=== PATIENT | female | born 1940 | race Caucasian/White ===

== ENCOUNTER 2017-08-07 12:27 | Emergency (ER) | payer MEDICARE, OTHER ==
[~2017-08-07] VITALS: Ht 165.1 cm; Wt 51.3 kg
[~2017-08-07 12:27] MED LIST: Advil200 M1 PO; HYDR1TAB94 PO; POTCIT10 PO
[2017-08-07] MEDS ORDERED: ASPI325 PO (13:25)
[2017-08-07] MEDS ORDERED: Garlic1 EAC1 PO (13:26)
[2017-08-07] MEDS ORDERED: Ginger250 MG PO (13:26)
[2017-08-07 13:48] LABS: BASOPHILS ABSOLUTE AUTO 0.02 K/mm3 (0.00-0.23); BASOPHILS PERCENT AUTO 0 % (0-2); EOSINOPHILS PERCENT AUTO 0 % (0-6); Hematocrit 48.7 % (33.0-51.0); Hemoglobin 15.6 g/dL (11.5-16.0); IMMATURE GRAN ABSOLUTE AUTO 0.06 K/mm3 (0.00-0.10); IMMATURE GRAN PERCENT AUTO 1 % (0-1); LYMPHOCYTES ABSOLUTE AUTO 0.36 K/mm3 (0.84-5.20); LYMPHOCYTES PERCENT AUTO 3 % (21-46); MONOCYTES ABSOLUTE AUTO 0.59 K/mm3 (0.16-1.47); MONOCYTES PERCENT AUTO 4 % (4-13); Mean Corpuscular HGB 26.9 pg (26.0-34.0); Mean Corpuscular Volume 84 fL (80-100); Mean Platelet Volume 9.8 fL (9.1-12.4); NEUTROPHILS ABSOLUTE AUTO 12.25 K/mm3 (1.96-9.15); NEUTROPHILS PERCENT AUTO 92 % (41-73); Platelet Count 340 K/mm3 (150-400); RDW Coefficient Variation 13.8 % (11.7-14.2); RDW Standard Deviation 42.1 fL (35.1-46.3); Red Blood Cell Count 5.81 M/mm3 (3.80-5.20); White Blood Cell Count 13.28 K/mm3 (4.00-11.30)
[2017-08-07 13:55] LABS: Bun/Creatinine Ratio 13.2 (12.0-20.0); Calcium, Blood 9.4 mg/dL (8.5-10.1); Creatinine, Blood 1.44 mg/dL (0.40-1.00); Potassium, Blood 4.8 mmol/L (3.5-5.5)
[2017-08-07] MEDS ORDERED: Zofran Odt4 MG SL (15:52)
[2017-08-07] MEDS ORDERED: Percocet 5-3251 EACH PO (15:52)
[2017-08-07] MEDS ORDERED: Flomax0.4 MG PO (15:52)
== END 2017-08-07 16:57 | disposition home or self-care (01) ==
LOC: ER 12:27
PROVIDERS: Emergency Medicine
DX: N13.2 Hydronephrosis with renal and ureteral calculous obstruction (principal); Z79.899 Other long term (current) drug therapy; Z79.82 Long term (current) use of aspirin; Z87.442 Personal history of urinary calculi; Z87.891 Personal history of nicotine dependence
CPT/HCPCS: 36415; 74176; 80048; 81000; 83690; 85025; 96361; 96374; 96375; 99284; J1885; J2405; J3010; J7030; P9612

== ENCOUNTER 2017-08-10 12:24 | Emergency (ER) | payer MEDICARE, OTHER ==
[~2017-08-10] VITALS: Ht 170.2 cm; Wt 51.3 kg
[~2017-08-10 12:24] MED LIST changes: +ASPI325 PO; +Flomax0.4 MG PO; +Garlic1 EAC1 PO; +Ginger250 MG PO; +Percocet 5-3251 EACH PO; +Zofran Odt4 MG SL
[2017-08-10 14:37] LABS: BASOPHILS ABSOLUTE AUTO 0.02 K/mm3 (0.00-0.23); BASOPHILS PERCENT AUTO 0 % (0-2); EOSINOPHILS ABSOLUTE AUTO 0.02 K/mm3 (0.00-0.68); EOSINOPHILS PERCENT AUTO 0 % (0-6); Hematocrit 37.7 % (33.0-51.0); Hemoglobin 12.3 g/dL (11.5-16.0); IMMATURE GRAN ABSOLUTE AUTO 0.04 K/mm3 (0.00-0.10); IMMATURE GRAN PERCENT AUTO 0 % (0-1); LYMPHOCYTES ABSOLUTE AUTO 0.68 K/mm3 (0.84-5.20); LYMPHOCYTES PERCENT AUTO 6 % (21-46); MONOCYTES ABSOLUTE AUTO 1.17 K/mm3 (0.16-1.47); MONOCYTES PERCENT AUTO 11 % (4-13); Mean Corpuscular HGB 26.6 pg (26.0-34.0); Mean Corpuscular HGB Conc 32.6 g/dL (31.5-36.5); Mean Corpuscular Volume 82 fL (80-100); NEUTROPHILS ABSOLUTE AUTO 8.69 K/mm3 (1.96-9.15); NEUTROPHILS PERCENT AUTO 82 % (41-73); Platelet Count 232 K/mm3 (150-400); RDW Coefficient Variation 13.5 % (11.7-14.2); RDW Standard Deviation 40.3 fL (35.1-46.3); Red Blood Cell Count 4.62 M/mm3 (3.80-5.20); White Blood Cell Count 10.62 K/mm3 (4.00-11.30)
[2017-08-10 15:09] LABS: Albumin, Blood 2.8 g/dL (3.4-5.0); Albumin/Globulin Ratio 0.7 (0.8-1.8); Bilirubin, Total 0.5 mg/dL (0.1-1.0); Bun/Creatinine Ratio 9.1 (12.0-20.0); Calcium, Blood 8.2 mg/dL (8.5-10.1); Creatinine, Blood 7.83 mg/dL (0.40-1.00); Globulin, Blood 3.9 g/dL (2.2-4.0); Potassium, Blood 6.4 mmol/L (3.5-5.5); Total Protein, Blood 6.7 g/dL (6.4-8.2)
[2017-08-10 17:05] LABS: Calcium, Ionized (POC) 1.07 mmol/L (1.10-1.46); Chloride (POC) 96 mmol/L (98-108); Creatinine (POC) 8.3 mg/dL (0.6-1.0); Glucose (ISTAT POC) 140 mg/dL (70-99); Hemoglobin (POC) 11.9 g/dL (12.0-16.0); Potassium (POC) 5.1 mmol/L (3.5-5.5); Sodium (POC) 126 mmol/L (135-148); Total CO2 (POC) 18 mmol/L (21-32)
== END 2017-08-10 17:15 | disposition short-term general hospital (02) ==
LOC: ER 12:24
PROVIDERS: Emergency Medicine
DX: N13.2 Hydronephrosis with renal and ureteral calculous obstruction (principal); N17.9 Acute kidney failure, unspecified; E87.2 Acidosis; Z79.899 Other long term (current) drug therapy; Z87.442 Personal history of urinary calculi; Z87.891 Personal history of nicotine dependence
CPT/HCPCS: 36415; 76770; 80047; 80053; 85014; 85025; 93005; 93010; 94644; 96361; 96374; 96375; 99285; J1815; J7030

== ENCOUNTER → 2017-09-07 | Outpatient (CLI) | payer MEDICARE, OTHER ==
[2017-09-07 15:36] LABS: Source, Urine Clean Catch
[2017-09-07 16:04] LABS: Appearance, Urine Cloudy (Clear); Bilirubin, Urine Neg (Neg); Blood, Urine 5+ (Neg); Color, Urine Yellow (P-Yellow); Glucose Qualitative, Urine Neg (Neg); Ketones, Urine Neg (Neg); Leukocyte Esterase, Urine 3+ (Neg); Nitrite, Urine Pos (Neg); Protein, Urine 3+ (Neg); Urobilinogen, Urine NORM (Normal)
[2017-09-07 16:21] LABS: Bacteria Many /hpf; Red Blood Cells, Urine 0-2 /hpf (0-2); Squamous Epithelial Cells Few /hpf (Few); White Blood Cells, Urine TNTC /hpf (0-5)
== END ==
LOC: LAB 15:35 → LAB SHORT 15:35
PROVIDERS: Family Medicine
DX: R82.90 Unspecified abnormal findings in urine (principal)
CPT/HCPCS: 81001; 87077; 87086; 87186

== ENCOUNTER → 2017-09-08 | Outpatient (CLI) | payer MEDICARE, OTHER | END | disposition home or self-care (01) | LOC: LAB EV 13:57 → LAB SHORT 13:57 | DX: N39.0 Urinary tract infection, site not specified (principal) | CPT/HCPCS: 87077; 87086; 87186 ==

== ENCOUNTER 2017-10-25 17:01 | Emergency (ER) | payer MEDICARE, OTHER ==
[~2017-10-25] VITALS: Ht 160 cm; Wt 45.8 kg
[2017-10-25] MEDS ORDERED: GABA100 (17:16)
[2017-10-25 17:47] LABS: BASOPHILS ABSOLUTE AUTO 0.03 K/mm3 (0.00-0.23); BASOPHILS PERCENT AUTO 0 % (0-2); EOSINOPHILS PERCENT AUTO 1 % (0-6); Hematocrit 37.6 % (33.0-51.0); Hemoglobin 10.9 g/dL (11.5-16.0); IMMATURE GRAN ABSOLUTE AUTO 0.02 K/mm3 (0.00-0.10); IMMATURE GRAN PERCENT AUTO 0 % (0-1); LYMPHOCYTES ABSOLUTE AUTO 0.58 K/mm3 (0.84-5.20); LYMPHOCYTES PERCENT AUTO 7 % (21-46); MONOCYTES ABSOLUTE AUTO 0.65 K/mm3 (0.16-1.47); MONOCYTES PERCENT AUTO 8 % (4-13); Mean Corpuscular HGB 21.6 pg (26.0-34.0); Mean Corpuscular Volume 75 fL (80-100); Mean Platelet Volume 9.4 fL (9.1-12.4); NEUTROPHILS ABSOLUTE AUTO 6.77 K/mm3 (1.96-9.15); NEUTROPHILS PERCENT AUTO 83 % (41-73); Platelet Count 348 K/mm3 (150-400); RDW Coefficient Variation 23.3 % (11.7-14.2); RDW Standard Deviation 62.4 fL (35.1-46.3); Red Blood Cell Count 5.04 M/mm3 (3.80-5.20); White Blood Cell Count 8.15 K/mm3 (4.00-11.30)
[2017-10-25 18:49] LABS: Albumin/Globulin Ratio 0.9 (0.8-1.8); Bun/Creatinine Ratio 7.8 (12.0-20.0); Calcium, Blood 8.2 mg/dL (8.5-10.1); Creatinine, Blood 3.2 mg/dL (0.40-1.00); Globulin, Blood 3.5 g/dL (2.2-4.0); Potassium, Blood 3.7 mmol/L (3.5-5.5); Total Protein, Blood 6.5 g/dL (6.4-8.2)
== END 2017-10-25 23:01 | disposition short-term general hospital (02) ==
LOC: ER 17:01
PROVIDERS: Emergency Medicine
DX: N17.9 Acute kidney failure, unspecified (principal); N13.2 Hydronephrosis with renal and ureteral calculous obstruction; Z87.891 Personal history of nicotine dependence
CPT/HCPCS: 36415; 74176; 80053; 85025; 96374; 96375; 96376; 99285-25; J2405; J3010

== ENCOUNTER 2017-12-07 10:50 | Emergency (ER) | payer MEDICARE, OTHER ==
[~2017-12-07] VITALS: Ht 160 cm; Wt 45.4 kg
[~2017-12-07 10:50] MED LIST changes: +GABA100
[2017-12-07 11:25] LABS: BASOPHILS ABSOLUTE AUTO 0.04 K/mm3 (0.00-0.23); BASOPHILS PERCENT AUTO 1 % (0-2); EOSINOPHILS ABSOLUTE AUTO 0.02 K/mm3 (0.00-0.68); EOSINOPHILS PERCENT AUTO 0 % (0-6); Hematocrit 43.8 % (33.0-51.0); Hemoglobin 13.1 g/dL (11.5-16.0); IMMATURE GRAN ABSOLUTE AUTO 0.04 K/mm3 (0.00-0.10); IMMATURE GRAN PERCENT AUTO 1 % (0-1); LYMPHOCYTES PERCENT AUTO 6 % (21-46); MONOCYTES ABSOLUTE AUTO 0.62 K/mm3 (0.16-1.47); MONOCYTES PERCENT AUTO 8 % (4-13); Mean Corpuscular HGB 24.1 pg (26.0-34.0); Mean Corpuscular HGB Conc 29.9 g/dL (31.5-36.5); Mean Corpuscular Volume 81 fL (80-100); Mean Platelet Volume 9.4 fL (9.1-12.4); NEUTROPHILS ABSOLUTE AUTO 6.92 K/mm3 (1.96-9.15); NEUTROPHILS PERCENT AUTO 85 % (41-73); Platelet Count 214 K/mm3 (150-400); RDW Coefficient Variation 22.8 % (11.7-14.2); RDW Standard Deviation 65.7 fL (35.1-46.3); Red Blood Cell Count 5.43 M/mm3 (3.80-5.20); White Blood Cell Count 8.14 K/mm3 (4.00-11.30)
[2017-12-07 11:38] LABS: Albumin, Blood 3.3 g/dL (3.4-5.0); Albumin/Globulin Ratio 0.9 (0.8-1.8); Bilirubin, Total 0.5 mg/dL (0.1-1.0); Bun/Creatinine Ratio 9.9 (12.0-20.0); Calcium, Blood 6.9 mg/dL (8.5-10.1); Creatinine, Blood 4.06 mg/dL (0.40-1.00); Globulin, Blood 3.8 g/dL (2.2-4.0); Potassium, Blood 5.8 mmol/L (3.5-5.5); Total Protein, Blood 7.1 g/dL (6.4-8.2)
[2017-12-07] MEDS ORDERED: POTCIT10 PO (16:03)
[2017-12-07] MEDS ORDERED: ALLO300 PO (16:03)
[2017-12-07] MEDS ORDERED: OXYC5 PO (16:06)
[2017-12-07] MEDS ORDERED: CALC.25 PO (16:06)
[2017-12-07] MEDS ORDERED: Hydrocodone-Ap1 EA23 PO (16:06)
[2017-12-07] MEDS ORDERED: GABA300 PO (16:07)
[2017-12-07] MEDS ORDERED: Ferrex 150 For1 EACH PO (16:07)
[2017-12-07] MEDS ORDERED: OXYB5 PO (16:07)
== END 2017-12-07 19:10 | disposition short-term general hospital (02) ==
LOC: ER 10:50
PROVIDERS: Emergency Medicine
DX: N13.1 Hydronephrosis with ureteral stricture, not elsewhere classified (principal); N17.9 Acute kidney failure, unspecified; Z79.82 Long term (current) use of aspirin; Z79.899 Other long term (current) drug therapy; Z87.891 Personal history of nicotine dependence
CPT/HCPCS: 36415; 51798; 74176; 80053; 85025; 96360; 99284-25; J2405; J7030

== ENCOUNTER → 2018-07-08 | Outpatient (CLI) | payer MEDICARE, OTHER ==
[~2018-07-08] MED LIST changes: +ALLO300 PO; +CALC.25 PO; +Ferrex 150 For1 EACH PO; +GABA300 PO; +Hydrocodone-Ap1 EA23 PO; +OXYB5 PO; +OXYC5 PO
[2018-07-08 13:38] LABS: Source, Urine Clean Catch
[2018-07-08 17:26] LABS: Bilirubin, Urine Neg (Neg); Blood, Urine 5+ (Neg); Glucose Qualitative, Urine Neg (Neg); Ketones, Urine Neg (Neg); Leukocyte Esterase, Urine Neg (Neg); Nitrite, Urine Neg (Neg); Protein, Urine 4+ (Neg); Specific Gravity, Urine 1.015 (1.003-1.022); Urobilinogen, Urine NORM (Normal)
[2018-07-08 18:04] LABS: Appearance, Urine Hazy (Clear); Color, Urine Yellow (P-Yellow)
[2018-07-08 18:05] LABS: Bacteria Mod /hpf; Red Blood Cells, Urine 50-100 /hpf (0-2); Squamous Epithelial Cells Few /hpf (Few); White Blood Cells, Urine 0-2 /hpf (0-5)
== END | disposition home or self-care (01) ==
LOC: LAB 13:31 → LAB SHORT 13:31
PROVIDERS: Family Medicine
DX: N30.00 Acute cystitis without hematuria (principal)
CPT/HCPCS: 81001; 87086

== ENCOUNTER → 2020-03-17 | Outpatient (CLI) | payer MEDICARE, OTHER | END | disposition home or self-care (01) | LOC: LAB 07:45 → LAB SHORT 07:45 → EDSTATUS 02-22 12:50 → LAB FUT 02-22 12:50 | DX: N20.1 Calculus of ureter (principal) | CPT/HCPCS: 81050 ==

== ENCOUNTER → 2020-05-26 | Outpatient (CLI) | payer MEDICARE, OTHER ==
[2020-06-08 19:11] LABS: BRUSHITE 0.02 ratio (0.00-3.00); CALCIUM OXALATE 1.06 ratio (0.00-6.00); CHLORIDE URINE 48 (110-250); CITRIC ACID (CITRATE) < 1 mg/L (Not Estab.); CITRIC ACID(CITRATE) <2 mg/24 hr (320-1240); CREATININE, URINE 33.1 mg/dL (Not Estab.); MAGNESIUM, URINE <1.4 mg/dL (Not Estab.); MONOSODIUM URATE 0.06 ratio (0.00-4.00); OSMOLALITY, URINE 182 (300-900); SODIUM, URINE 24 mmol/L (Not Estab.); SODIUM, URINE 48 (39-258); STRUVITE 0.01 ratio (0.00-1.00); URIC ACID 0.73 ratio (0.00-1.20); URINE VOLUME 2000 mL/24 hr (600-1600); URINE VOLUME (PRESERVATIVE) 2000 mL/24 hr (600-1600)
== END ==
LOC: LAB SHORT 09:10 → OLS 09:10 → LAB FUT 04-23 13:45
PROVIDERS: Urology Female Pelvic Medicine and Reconstructive Surgery
DX: N20.1 Calculus of ureter (principal); N20.0 Calculus of kidney
CPT/HCPCS: 81003; 81050; 82131; 82140; 82340; 82436; 82507; 82570; 83735; 83935; 83945; 84105; 84133; 84300; 84392; 84560

== ENCOUNTER 2020-09-24 14:30 | Emergency (ER) | payer MEDICARE, OTHER ==
[~2020-09-24] VITALS: Ht 160 cm; Wt 46.7 kg
[2020-09-24 15:20] LABS: BASOPHILS ABSOLUTE AUTO 0.03 K/mm3 (0.00-0.23); BASOPHILS PERCENT AUTO 0 % (0-2); EOSINOPHILS PERCENT AUTO 0 % (0-6); Hematocrit 39.9 % (33.0-51.0); Hemoglobin 12.6 g/dL (11.5-16.0); IMMATURE GRAN ABSOLUTE AUTO 0.08 K/mm3 (0.00-0.10); IMMATURE GRAN PERCENT AUTO 1 % (0-1); LYMPHOCYTES ABSOLUTE AUTO 0.36 K/mm3 (0.84-5.20); LYMPHOCYTES PERCENT AUTO 2 % (21-46); MONOCYTES ABSOLUTE AUTO 1.44 K/mm3 (0.16-1.47); MONOCYTES PERCENT AUTO 8 % (4-13); Mean Corpuscular HGB 26.1 pg (26.0-34.0); Mean Corpuscular HGB Conc 31.6 g/dL (31.5-36.5); Mean Corpuscular Volume 83 fL (80-100); Mean Platelet Volume 10.1 fL (9.1-12.4); NEUTROPHILS ABSOLUTE AUTO 15.57 K/mm3 (1.96-9.15); NEUTROPHILS PERCENT AUTO 89 % (41-73); Platelet Count 277 K/mm3 (150-400); RDW Coefficient Variation 15.4 % (11.7-14.2); RDW Standard Deviation 46.5 fL (35.1-46.3); Red Blood Cell Count 4.82 M/mm3 (3.80-5.20); White Blood Cell Count 17.48 K/mm3 (4.00-11.30)
[2020-09-24 15:39] LABS: Albumin/Globulin Ratio 0.7 (0.8-1.8); Bilirubin, Total 0.8 mg/dL (0.1-1.0); Bun/Creatinine Ratio 10.7 (12.0-20.0); Calcium, Blood 8.4 mg/dL (8.5-10.1); Creatinine, Blood 3.55 mg/dL (0.40-1.00); Globulin, Blood 4.1 g/dL (2.2-4.0); Potassium, Blood 4.7 mmol/L (3.5-5.5); Total Protein, Blood 7.1 g/dL (6.4-8.2)
[2020-09-24 18:10] LABS: Source, Urine Clean Catch
[2020-09-24 18:14] LABS: Appearance, Urine Hazy (Clear); Bilirubin, Urine Neg (Neg); Blood, Urine 5+ (Neg); Color, Urine Yellow (P-Yellow); Glucose Qualitative, Urine Neg (Neg); Ketones, Urine Neg (Neg); Leukocyte Esterase, Urine 3+ (Neg); Nitrite, Urine Neg (Neg); Protein, Urine 2+ (Neg); Urobilinogen, Urine NORM (Normal)
[2020-09-24 18:28] LABS: Bacteria Mod /hpf; Squamous Epithelial Cells Few /hpf (Few); White Blood Cells, Urine TNTC /hpf (0-5)
== END 2020-09-24 22:25 | disposition home or self-care (01) ==
LOC: ER 14:30
PROVIDERS: Physician Assistant
DX: N13.6 Pyonephrosis (principal); Z91.09 Other allergy status, other than to drugs and biological substances; Z79.899 Other long term (current) drug therapy; Z87.891 Personal history of nicotine dependence
CPT/HCPCS: 36415; 74176; 76770; 80053; 81001; 85025; 87077; 87086; 87186; 96374; 96375; 96376; 99285-25; J0696; J2405; J3010; J7030

== ENCOUNTER 2021-05-15 11:58 | Inpatient (IN) | payer MEDICARE, OTHER ==
[~2021-05-15] VITALS: Ht 167.6 cm; Wt 43.9 kg
[~2021-05-15 11:58] MED LIST changes: +FERREX 150 FOR1 EACH PO; -Ferrex 150 For1 EACH PO
[2021-05-15 12:48] LABS: BASOPHILS ABSOLUTE AUTO 0.05 K/mm3 (0.00-0.23); BASOPHILS PERCENT AUTO 0 % (0-2); EOSINOPHILS ABSOLUTE AUTO 0.01 K/mm3 (0.00-0.68); EOSINOPHILS PERCENT AUTO 0 % (0-6); Hematocrit 29.9 % (33.0-51.0); Hemoglobin 9.6 g/dL (11.5-16.0); IMMATURE GRAN ABSOLUTE AUTO 0.12 K/mm3 (0.00-0.10); IMMATURE GRAN PERCENT AUTO 1 % (0-1); LYMPHOCYTES ABSOLUTE AUTO 0.35 K/mm3 (0.84-5.20); LYMPHOCYTES PERCENT AUTO 2 % (21-46); MONOCYTES ABSOLUTE AUTO 0.36 K/mm3 (0.16-1.47); MONOCYTES PERCENT AUTO 3 % (4-13); Mean Corpuscular HGB 25.3 pg (26.0-34.0); Mean Corpuscular HGB Conc 32.1 g/dL (31.5-36.5); Mean Corpuscular Volume 79 fL (80-100); Mean Platelet Volume 10.4 fL (9.1-12.4); NEUTROPHILS ABSOLUTE AUTO 13.61 K/mm3 (1.96-9.15); NEUTROPHILS PERCENT AUTO 94 % (41-73); Platelet Count 434 K/mm3 (150-400); RDW Coefficient Variation 18.1 % (11.7-14.2); RDW Standard Deviation 51.6 fL (35.1-46.3)
[2021-05-15 13:07] LABS: Source, Urine Straight Cath
[2021-05-15 13:16] LABS: Appearance, Urine Cloudy (Clear); Bilirubin, Urine Neg (Neg); Blood, Urine 3+ (Neg); Color, Urine Yellow (P-Yellow); Glucose Qualitative, Urine Neg (Neg); Ketones, Urine Neg (Neg); Leukocyte Esterase, Urine 3+ (Neg); Nitrite, Urine Neg (Neg); Protein, Urine 2+ (Neg); Specific Gravity, Urine 1.015 (1.003-1.022); Urobilinogen, Urine NORM (Normal)
[2021-05-15 13:18] LABS: Magnesium, Blood 1.7 mg/dL (1.6-2.4)
[2021-05-15 13:24] LABS: Albumin, Blood 3.4 g/dL (3.4-5.0); Albumin/Globulin Ratio 0.8 (0.8-1.8); Bilirubin, Total 0.3 mg/dL (0.1-1.0); Bun/Creatinine Ratio 17.6 (12.0-20.0); Calcium, Blood 7.3 mg/dL (8.5-10.1); Creatinine, Blood 9.54 mg/dL (0.40-1.00); Globulin, Blood 4.1 g/dL (2.2-4.0); Potassium, Blood 4.4 mmol/L (3.5-5.5); Total Protein, Blood 7.5 g/dL (6.4-8.2)
[2021-05-15 13:33] LABS: White Blood Cells, Urine 0-2 /hpf (0-5)
[2021-05-15 13:35] LABS: Bacteria Many /hpf; Red Blood Cells, Urine 0-2 /hpf (0-2); Squamous Epithelial Cells Rare /hpf (Few)
[2021-05-15 13:49] LABS: Influenza A, PCR NEGATIVE (NEGATIVE); Influenza B, PCR NEGATIVE (NEGATIVE); Resp Syncytial Virus, PCR NEGATIVE (NEGATIVE); SARS-Cov-2 (COVID-19) PCR, MMC NEGATIVE (NEGATIVE)
[2021-05-15 14:52] LABS: International Normalized Ratio 1.04; Prothrombin Time Results 10.9 Sec (9.7-11.5)
--- NOTE | 2021-05-15 17:21 | NUR ---
RECIEVED PATIENT FROM ER. PATIENT IS A&OX0 BUT FOLLOWS SIMPLE COMMANDS. AT BEDSIDE UNABLE TO ANSWER ALL ADMISSION QUESTIONS. MED RECONCILATION IS INCOMPLETE. PATIENT IS RESTING COMFORTABLY. CALL LIGHT PLACED WITHIN REACH, BED IN LOWEST POSITION, AND BED ALARM IS ON.
[2021-05-15 17:44] LABS: Albumin, Blood 2.9 g/dL (3.4-5.0); Anion Gap 18 mmol/L (6-16); Blood Urea Nitrogen 156 mg/dL (8-24); Bun/Creatinine Ratio 16.8 (12.0-20.0); CO2, Blood 8 mmol/L (21-32); Calcium, Blood 6.9 mg/dL (8.5-10.1); Chloride, Blood 121 mmol/L (98-108); Creatinine, Blood 9.28 mg/dL (0.40-1.00); Glomerular Filtration Rate 4 (60-); Glucose, Blood 141 mg/dL (70-99); Phosphorus, Blood 9.4 mg/dL (2.5-4.9); Potassium, Blood 3.7 mmol/L (3.5-5.5); Sodium, Blood 147 mmol/L (136-145)
--- NOTE | 2021-05-16 05:18 | NUR ---
Patient AAOX1, Breathig at R/A. No complaint voives. She has a ricci draining by gravity. She slept most of the night. No acute events noted. Bed om low position, call light withing reach. We will continue to monitor patient until report given to the oncoming nurse.
[2021-05-16 05:31] LABS: BASOPHILS ABSOLUTE AUTO 0.03 K/mm3 (0.00-0.23); BASOPHILS PERCENT AUTO 0 % (0-2); EOSINOPHILS ABSOLUTE AUTO 0.03 K/mm3 (0.00-0.68); EOSINOPHILS PERCENT AUTO 0 % (0-6); Hematocrit 24.2 % (33.0-51.0); Hemoglobin 7.8 g/dL (11.5-16.0); IMMATURE GRAN ABSOLUTE AUTO 0.06 K/mm3 (0.00-0.10); IMMATURE GRAN PERCENT AUTO 1 % (0-1); LYMPHOCYTES ABSOLUTE AUTO 0.58 K/mm3 (0.84-5.20); LYMPHOCYTES PERCENT AUTO 6 % (21-46); MONOCYTES ABSOLUTE AUTO 0.81 K/mm3 (0.16-1.47); MONOCYTES PERCENT AUTO 9 % (4-13); Mean Corpuscular HGB 25.2 pg (26.0-34.0); Mean Corpuscular HGB Conc 32.2 g/dL (31.5-36.5); Mean Corpuscular Volume 78 fL (80-100); NEUTROPHILS ABSOLUTE AUTO 7.86 K/mm3 (1.96-9.15); NEUTROPHILS PERCENT AUTO 84 % (41-73); Platelet Count 335 K/mm3 (150-400); RDW Coefficient Variation 18.1 % (11.7-14.2); RDW Standard Deviation 50.6 fL (35.1-46.3); Red Blood Cell Count 3.09 M/mm3 (3.80-5.20); White Blood Cell Count 9.37 K/mm3 (4.00-11.30)
[2021-05-16 06:16] LABS: Magnesium, Blood 1.5 mg/dL (1.6-2.4)
[2021-05-16 06:42] LABS: Albumin, Blood 2.8 g/dL (3.4-5.0); Albumin/Globulin Ratio 0.8 (0.8-1.8); Bilirubin, Total 0.3 mg/dL (0.1-1.0); Bun/Creatinine Ratio 18.6 (12.0-20.0); Calcium, Blood 6.6 mg/dL (8.5-10.1); Creatinine, Blood 8.76 mg/dL (0.40-1.00); Globulin, Blood 3.3 g/dL (2.2-4.0); Potassium, Blood 2.6 mmol/L (3.5-5.5); Total Protein, Blood 6.1 g/dL (6.4-8.2)
--- NOTE | 2021-05-16 17:18 | NUR ---
PATIENT IS ALERT AND DISORIENTED. SHE CAN STATE HER NAME AND BIRTHDAY AND KNOWS HER BUT SHE STRUGGLES FOLLOWING DIRECTIONS AND DOESNT KNOW WHY SHE IS HERE OR WHERE SHE IS AT. THE PATIENT HAS A POOR APPETITE, SHE WILL SIP WATER WITH A LOT OF ENCOURAGEMENT. THE PATIENT'S WAS AT THE BEDSIDE THIS MORNING. DR. JARAMILLO CALL AN UPDATE TO THE AND DAUGHTER. WILL CONTINUE TO MONITOR
[2021-05-16 17:23] LABS: Potassium, Blood 3.2 mmol/L (3.5-5.5)
--- NOTE | 2021-05-17 06:39 | NUR ---
SHIFT SUMMARY PATIENT ALERT AND ORIENTED X2. HAD NO COMPLAINTS OF PAIN OR SHORTNESS OF BREATH. NO ACUTE ISSUES NOTED OVERNIGHT. BED IN LOWEST POSITION WITH WHEELS LOCKED AND ALARM ON. CALL LIGHT WITHIN REACH. REPORT GIVEN TO ONCOMING RN.
[2021-05-17 06:41] LABS: Percent Saturation 21.3 % (15.0-50.0)
[2021-05-17 07:09] LABS: Magnesium, Blood 2.1 mg/dL (1.6-2.4)
[2021-05-17 07:10] LABS: Albumin, Blood 2.9 g/dL (3.4-5.0); Anion Gap 17 mmol/L (6-16); Blood Urea Nitrogen 146 mg/dL (8-24); Bun/Creatinine Ratio 18.5 (12.0-20.0); CO2, Blood 17 mmol/L (21-32); Calcium, Blood 6.2 mg/dL (8.5-10.1); Chloride, Blood 111 mmol/L (98-108); Creatinine, Blood 7.89 mg/dL (0.40-1.00); Glomerular Filtration Rate 5 (60-); Glucose, Blood 169 mg/dL (70-99); Potassium, Blood 3.1 mmol/L (3.5-5.5); Sodium, Blood 145 mmol/L (136-145)
[2021-05-17 07:11] LABS: Phosphorus, Blood 6.1 mg/dL (2.5-4.9)
--- NOTE | 2021-05-17 07:38 | NUR ---
CALLED DR BRYANT WITH LAB RESULTS. NEW OT ORDER FOR PO POTASSIUM ELIXIR 30MEQ NOW CCONTINUE SODIUM BICARB.
--- NOTE | 2021-05-17 11:46 | NUR ---
AM NOTE MS VANCE IS ORIENTATED TO SELF, SOMETIMES TO PLACE. SHE HAS A FLAT AFFECT AND IS SLOW TO CONVERSE AND ANSWER QUESTIONS. SHE DENIES PAIN. HER HAS BEEN AT HER BEDSIDE THIS MORNING. SHE DIDN'T DEB ANY OF HER BREAKFAST AND HAS BEEN REFUSING MOST ORAL FLUIDS. TOOK HER PO POTASSIUM WITH PERSUASION THIS AM, FOLLOWED WITH SOME APPLE SAUCE. IV TO R ANKLE REMOVED LEAKING AROUND SITE. PIV LEFT ARM REMOVED INFILTRATED. ARM HAS 4+ PITTING EDEMA NOTED. ELEVATED ON PILLOW.
--- NOTE | 2021-05-17 17:43 | NUR ---
MS VANCE IS ORIENTATED X2, FLAT AFFECT TODAY, ABLE TO FOLLOW SUGGESTIONS, BUT SPEACH SLOW TO ANSWER QUESTIONS, QUIET VOICE, CLEAR SPEACH. HER SON CONY CALLED AND RN UPDATED HIM ON PT PROGRESS AFTER MS VANCE GAVE VERBAL PERMISSION FOR US TO DO SO. CONY SAID THAT SHE IS NOT ENTERING IN CONVERSATION MUCH ON THE TELEPHONE WITH HIM TODAY SHE WAS ON SUNDAY. MS VANCE'S WAS AT HER BEDSIDE FOR A FEW HOURS THIS MORNING ALSO. CONY SAID HE WILL CALL IN THE MORNING AND DISCUSS PT PROGRESS WITH HER PHYSICIAN. MS VANCE HAS NOT EATEN OR DRANK MUCH AT ALL TODAY. EARLIER EPISODE OF NAUSEA AND ZOFRAN WORKED PARTIALLY. PT C/O A FURTHER EPISODE OF NAUSEA, BETTER HELPED WITH PEPPERMINT AROMATHERAPY SKIN PATCH, ICE CUBES AND COLD WASH CLOTH ON HER HEAD HELPED. SHE WAS ENCOURAGED TO DRINK SMALL AMOUNTS THROUGHOUT THE DAY. TURNED AND REPOSITIONED APPROX Q2HRS THROUGHOUT THE DAY. PREVENTATIVE SACRAL DRESSING IN PLACE. SMALL AREA OF REDNESS UNDERNEITH IT AND PRESSURE RELIEF WITH REPOSITIONING/PILLOWS. IV INFILTRATED TO LEFT ARM. LEFT ARM SWLLEN, ELEVATED ON A PILLOW. POWER GLIDE IV WAS PLACED IN RIGHT ARM. IVF INFUSING. CONSULT CALLED AND FAXED FOR NEPHROSTOMY TUBE PLACEMENT PER DR JARAMILLO. BED IN LOW POSITION, BED ALARM ON, SIDE RAILS UPX3, CALL LIGHT IN REACH.
--- NOTE | 2021-05-17 18:12 | NUR ---
WHILE REPOSITIONING THE PT SHE WAS NOTED TO HAVE VOMITED SOME CLEAR EMESIS SINCE THE LAST REPOSITION (Q2 HOURS) WHILE CHANGING THE LINNENS SHE BECGAN VOMITING YELLOW EMESIS. CALLED DR JARAMILLO IV ZOFRAN IS JUST AVAILABLE NOW AND SEEMS TO BE INEFFECTIVE. RECIEVED A NEW ORDER FOR IV PHENEGREN 12.5MG Q6 FOR NAUSEA OR VOMITING.
--- NOTE | 2021-05-17 18:36 | NUR ---
PHENERGAN 12.5MG iv GIVEN VIA POWER GLIDE THAT WAS PLACED TODAY. FLUSHED W 10CC NS, GREAT BLOOD DRAW, FLUSHED AGAIN WITH 10CC NS AND PHENERGAN MIXED IN 10CC NS AND GIVEN OVER 6 MINUTES. FLUSHED W 10CC NS POST PHENERGAN AND UNASYN RESTERTED. NO REDNESS, SWELLING OR TENDERNESS TO IV SITE NOTED.
--- NOTE | 2021-05-18 04:27 | NUR ---
SHIFT SUMMARY PATIENT HAD NO ACUTE CHANGES OBSERVED. AXOX 2 FLAT AFFECT. SLOW TO RESPOND AND BEDREST. POWERGLIDE CAMILLE INTACT. NA BICARB INFUSING AT 75 mL/HR. COLOSTOMY INTACT AND PINZON PATENT AND DRAINING TO GRAVITY. DENIES PAIN, SOB, AND N/V. VSS/AFEBRILE. PATIENT SLEPT MOST OF THE SHIFT. CALL LIGHT IN REACH. BED IN LOWEST POSITION. WILL CONTINUE TO MONITOR UNTIL DAY SHIFT NURSE ASSUMES CARE.
[2021-05-18 05:22] LABS: IMMATURE RETIC FRACTION 8.2 % (2.3-16.0); RETIC HGB EQUIVALENT 27.7 pg (28.20-36.60); RETICULOCYTE COUNT PERCENT 0.81 % (0.50-2.50)
[2021-05-18 06:32] LABS: Magnesium, Blood 1.8 mg/dL (1.6-2.4)
[2021-05-18 06:35] LABS: Albumin, Blood 2.6 g/dL (3.4-5.0); Anion Gap 11 mmol/L (6-16); Blood Urea Nitrogen 129 mg/dL (8-24); Bun/Creatinine Ratio 19.4 (12.0-20.0); CO2, Blood 26 mmol/L (21-32); Calcium, Blood 5.8 mg/dL (8.5-10.1); Chloride, Blood 106 mmol/L (98-108); Creatinine, Blood 6.65 mg/dL (0.40-1.00); Glomerular Filtration Rate 6 (60-); Glucose, Blood 140 mg/dL (70-99); Phosphorus, Blood 4.8 mg/dL (2.5-4.9); Potassium, Blood 3.1 mmol/L (3.5-5.5); Sodium, Blood 143 mmol/L (136-145)
--- NOTE | 2021-05-18 18:34 | NUR ---
PATIENT A/OX 2-3, VERY FORGETFUL. HX OF R NATHALIEA, PATIENT IS CHAIRFAST. PINZON TO GRAVITY WITH CLEAR YELLOW U/O. TAKEN DOWN TO IR TODAY FOR L NEPHROSTOMY PLACEMENT. OUTPUT FROM NEPHROSTOMY IS PINK/CLEAR. VSS, ON RA. PATIENT WAS VERY NAUSEATED THIS AM AND ZOFRAN AND PHENERGAN GIVEN TO TREAT. PATIENT ATE ABOUT 50% OF HER DINNER TONIGHT AND DENIES ANY NAUSEA NOW. ORDER FOR PICC LINE TO START TPN TOMORROW. COLOSTOMY TO LLQ WITH LOOSE BROWN STOOL OUTPUT TODAY. FALL PRECAUTIONS IN PLACE. PATIENT PAINFUL WITH REPOSITIONING, BUT OTHERWISE DENIES ANY PAIN.
[2021-05-19 04:57] LABS: Hematocrit 23.8 % (33.0-51.0); Hemoglobin 7.4 g/dL (11.5-16.0)
[2021-05-19 05:29] LABS: Albumin, Blood 2.6 g/dL (3.4-5.0); Anion Gap 10 mmol/L (6-16); Blood Urea Nitrogen 103 mg/dL (8-24); Bun/Creatinine Ratio 18.2 (12.0-20.0); CO2, Blood 25 mmol/L (21-32); Calcium, Blood 6.2 mg/dL (8.5-10.1); Chloride, Blood 112 mmol/L (98-108); Creatinine, Blood 5.67 mg/dL (0.40-1.00); Glomerular Filtration Rate 7 (60-); Glucose, Blood 102 mg/dL (70-99); Magnesium, Blood 1.7 mg/dL (1.6-2.4); Phosphorus, Blood 3.8 mg/dL (2.5-4.9); Potassium, Blood 3.4 mmol/L (3.5-5.5); Sodium, Blood 147 mmol/L (136-145)
--- NOTE | 2021-05-19 05:56 | NUR ---
SHIFT SUMMARY 80 YR F ADMITTED ON 05/15/21 FOR ACUTE RENAL FAILURE. DNR. NO ACUTE CHANGES THIS SHIFT. NEPHROSTOMY IS DRAING RED COLORED URINE AT APPROX 300-400 ML Q 4 HRS. PT ALSO HAS A PINZON THAT IS COLLECTING A SMALL AMOUNT OF LIGHT YELLOW URINE. SHE IS SCHEDULED FOR A PICC LINE TODAY. SHE HAS A VERY FLAT EFFECT AND SEEMS WITHDRAWN MOST OF THE TIME. SHE IS ABLE TO FOLLOW DIRECTION BUT DOES NOT APPEAR TO BE MOTIVATED IN PARTICIPATING IN HER OWN CARE. NS RUNNING 250 ML/HR PER DR. BRYANT. PT DID STATE THAT SHE IS HYNGRY AND IS LOOKING FORWARD TO BREAKFAST.
--- NOTE | 2021-05-19 19:49 | NUR ---
PATIENT ATE A LITTLE BIT OF BREAKFAST AND LUNCH TODAY. DRAINMAN CONSULTED WITH MD AND RN ABOUT NOT PLACING A PICC LINE AND TO RUN PPN BY PERIFF IV. PATIENT AGGREABLE. NO COMPLIANTS OF PAIN. NEPHROSTOMY TUBE DRAINING SEROSANGENOUS RED BLOOD COLORED DRAINAGE. NO ACUTE CHANGES PT STABLE AND ALERT AND ORIENTED UPON REPORT. WILL REPORT TO ONCOMING NURSE UPON ARRIVAL.
--- NOTE | 2021-05-20 02:38 | NUR ---
SHIFT SUMMARY 80 YR F ADMITTED ON 05/15/21 FOR ACUTE RENAL FAILURE. DNR. NEPHROSTOMY IS DRAINING WELL AND URINE IS STILL A REDDISH COLOR. URINE IN PINZON IS YELLOW. SHE WAS STARTED ON TPN THIS EVENING. SHE HAS SLEPT FOR MOST OF THIS SHIFT AND IS QUIET AND KEEPS TO HERSELF WHEN SHE IS AWAKE. SHE APPEARS WEAK AND DOES NOT LIKE TO CHANGE POSITIONS IN BED. HER SKIN IS ALSO PALE.
[2021-05-20 07:36] LABS: Hemoglobin 7.7 g/dL (11.5-16.0); Mean Corpuscular HGB 25.4 pg (26.0-34.0); Mean Corpuscular HGB Conc 30.8 g/dL (31.5-36.5); Mean Corpuscular Volume 83 fL (80-100); Mean Platelet Volume 11.4 fL (9.1-12.4); Platelet Count 211 K/mm3 (150-400); RDW Coefficient Variation 18.1 % (11.7-14.2); Red Blood Cell Count 3.03 M/mm3 (3.80-5.20); White Blood Cell Count 10.69 K/mm3 (4.00-11.30)
[2021-05-20 07:49] LABS: Albumin, Blood 2.5 g/dL (3.4-5.0); Anion Gap 8 mmol/L (6-16); Blood Urea Nitrogen 72 mg/dL (8-24); Bun/Creatinine Ratio 16.9 (12.0-20.0); CO2, Blood 26 mmol/L (21-32); Calcium, Blood 6.3 mg/dL (8.5-10.1); Chloride, Blood 115 mmol/L (98-108); Creatinine, Blood 4.26 mg/dL (0.40-1.00); Glomerular Filtration Rate 10 (60-); Glucose, Blood 134 mg/dL (70-99); Magnesium, Blood 1.7 mg/dL (1.6-2.4); Phosphorus, Blood 2.9 mg/dL (2.5-4.9); Potassium, Blood 3.4 mmol/L (3.5-5.5); Sodium, Blood 149 mmol/L (136-145); Triglycerides 110 mg/dL (30-160)
--- NOTE | 2021-05-20 16:41 | NUR ---
ORDERS FOR D5 PLACED. CALLED MD TO CLARIFY ORDER. PATIENT IS CURRENTLY ON PPN FOR DIETARY. MD CONFIRMED TO CANCEL D5 ORDER AND TO CONTINUE PPN SCHEDULED.
--- NOTE | 2021-05-21 03:47 | NUR ---
SHIFT SUMMARY: NO SIGNIFICANT EVENTS OVERNIGHT. PATIENT A&OX2-3 FLAT AFFECT, COMPLAINT WITH CARE. PPN RUNNING AT 85 ML/HR NO COMPLAINTS OF NAUSEA OR ABDOMINAL PAIN. LEFT NEPHROSOTMY WITH ADEQAUTE URINE OUTPUT. PINZON WITH LITTLE URINE OUTPUT. COLOSTMOY WITH LIQUID STOOL. RIGHT LEG AMPUTATION. NO COMPLAINTS OF PAIN. WCTM.
[2021-05-21 05:21] LABS: Hematocrit 25.6 % (33.0-51.0); Hemoglobin 7.8 g/dL (11.5-16.0); Mean Corpuscular HGB 25.8 pg (26.0-34.0); Mean Corpuscular HGB Conc 30.5 g/dL (31.5-36.5); Mean Corpuscular Volume 85 fL (80-100); Mean Platelet Volume 11.5 fL (9.1-12.4); Platelet Count 201 K/mm3 (150-400); RDW Coefficient Variation 17.6 % (11.7-14.2); RDW Standard Deviation 54.6 fL (35.1-46.3); Red Blood Cell Count 3.02 M/mm3 (3.80-5.20); White Blood Cell Count 11.98 K/mm3 (4.00-11.30)
[2021-05-21 05:39] LABS: Albumin, Blood 2.4 g/dL (3.4-5.0); Albumin/Globulin Ratio 0.7 (0.8-1.8); Bilirubin, Total 0.3 mg/dL (0.1-1.0); Bun/Creatinine Ratio 17.7 (12.0-20.0); Calcium, Blood 6.8 mg/dL (8.5-10.1); Creatinine, Blood 3.1 mg/dL (0.40-1.00); Globulin, Blood 3.4 g/dL (2.2-4.0); Magnesium, Blood 1.6 mg/dL (1.6-2.4); Phosphorus, Blood 1.7 mg/dL (2.5-4.9); Potassium, Blood 3.3 mmol/L (3.5-5.5); Total Protein, Blood 5.8 g/dL (6.4-8.2)
--- NOTE | 2021-05-21 19:16 | NUR ---
PATIENT STABE UPON ARRIVAL. PATIENT ABLE TO EAT X2 BREAKFAST AND DINNER. TPN RUNNING CONTINOUS EXCEPT FOR WHEN SODIUM PHOSPHATE OR FERROUS GLUCONTE RUNNING. PATIENT POTASIUM WAS LOW TODAY SO ORAL POTASSIUM GIVEN WHICH CAUSED PT TO HAVE A STOMACH ACHE AND NAUSEA. PT GIVEN PRN ZOFRAN.
[2021-05-22 05:04] LABS: Hemoglobin 8.2 g/dL (11.5-16.0)
[2021-05-22 05:51] LABS: Albumin, Blood 2.4 g/dL (3.4-5.0); Anion Gap 6 mmol/L (6-16); Blood Urea Nitrogen 40 mg/dL (8-24); Bun/Creatinine Ratio 15.7 (12.0-20.0); CO2, Blood 29 mmol/L (21-32); Calcium, Blood 6.6 mg/dL (8.5-10.1); Chloride, Blood 107 mmol/L (98-108); Creatinine, Blood 2.54 mg/dL (0.40-1.00); Glomerular Filtration Rate 18 (60-); Glucose, Blood 155 mg/dL (70-99); Magnesium, Blood 1.5 mg/dL (1.6-2.4); Phosphorus, Blood 2.3 mg/dL (2.5-4.9); Potassium, Blood 3.6 mmol/L (3.5-5.5); Sodium, Blood 142 mmol/L (136-145)
--- NOTE | 2021-05-22 06:08 | NUR ---
SHIFT SUMMARY: NO ACUTE CHANGES OR SIGNIFICANT EVENTS OVER NIGHT. COMPLIANT WITH CARE AND MEDICATION ADMINISTRATION. LEFT NEPHROSTOMY, PINZON, AND COLOSTOMY WITH ADEQAUTE OUTPUT CHARTED IN I&O. OSTOMY DEVICE FOUND LEAKING, SKIN CLEANSED THOUROUGHLY AND DEVICE REPLACED. NOTED MACERATION TO SKIN BELOW STOMA, AND BREAK DOWN IN INGUINAL FOLD. CRUSTING TECHNIQUE USED TO PROTECT OPEN AREAS, AND SKIN PREP APPLIED TO SKIN.
[2021-05-23 04:48] LABS: Hematocrit 28.3 % (33.0-51.0); Hemoglobin 8.4 g/dL (11.5-16.0)
[2021-05-23 05:25] LABS: Albumin, Blood 2.3 g/dL (3.4-5.0); Anion Gap 7 mmol/L (6-16); Blood Urea Nitrogen 32 mg/dL (8-24); Bun/Creatinine Ratio 14.7 (12.0-20.0); CO2, Blood 28 mmol/L (21-32); Calcium, Blood 6.8 mg/dL (8.5-10.1); Chloride, Blood 109 mmol/L (98-108); Creatinine, Blood 2.18 mg/dL (0.40-1.00); Glomerular Filtration Rate 22 (60-); Glucose, Blood 139 mg/dL (70-99); Magnesium, Blood 2.2 mg/dL (1.6-2.4); Phosphorus, Blood 2.8 mg/dL (2.5-4.9); Potassium, Blood 3.1 mmol/L (3.5-5.5); Sodium, Blood 144 mmol/L (136-145)
--- NOTE | 2021-05-23 05:42 | NUR ---
SHIFT SUMMAEY: PATIENT ASYMPTOMATIC HYPOTENSION. MD CONTACTED AND 1L BOLUS ORDER. HYPOTENSION RESOLVED. COMPLIANT WITH CARE AND MEDICATION ADMNISTRATION. ADEQAUTE OUTPUT ON NEPHROSTOMY, PINZON, AND COLOSTOMY. PATIENT REPORTS INCREASED APPETITE.
--- NOTE | 2021-05-23 18:37 | NUR ---
SHIFT SUMMARY THE PATIENT IS ALERT AND ORIENTED X2, PLEASANT AND COOPERATIVE MOST OF THE TIME. THE PATIENT GOT REPLACEMENT FOR POTASSSIUM AND MAGNESIUM THIS SHIFT. OSTOMY BAG CHANGED. PATIENT MEDICATED FOR NAUSEA X1. PPN STOPPED THIS EVENING PER DR. JARAMILLO. PATIENT HAS BEEN INCREASING PO INTAKE THIS SHIFT. AMPICILLIN CURRENTLY INFUSING. VSS. NOTHING FURTHER TO REPORT.
--- NOTE | 2021-05-24 04:31 | NUR ---
SHIFT SUMMARY: PATIENT MORE ACTIVE TONIGHT, ACTUALLY SAT UP AT EDGE OF BED AND SET OFF BED ALARM PATIENT STATED "I NEED TO EMPTY MY BAG AND IT IS DIFFERENT FROM MY NORMAL ONES AT HOME" SHE WAS REFERENCEING HER OSTOMY BAG THAT DID IN FACT NEED TO BE EMPTIED. ASSISTED PATIENT WITH THIS AND RETURNED HER TO LAYING IN BED. NEPHROSOTMY, PINZON, AND OSOTOMY WITH ADEQUATE OUTPUT. PATIENT IS NO LONGER ON PPN ENCOURAGED PO INTAKE AND FLUIDS EACH TIME I WAS IN THE ROOM. NO SIGNIFICANT EVENTS ON NOC.
[2021-05-24 05:52] LABS: Hematocrit 29.5 % (33.0-51.0); Hemoglobin 8.4 g/dL (11.5-16.0)
[2021-05-24 06:02] LABS: Albumin, Blood 2.4 g/dL (3.4-5.0); Anion Gap 6 mmol/L (6-16); Blood Urea Nitrogen 28 mg/dL (8-24); Bun/Creatinine Ratio 13.4 (12.0-20.0); CO2, Blood 27 mmol/L (21-32); Calcium, Blood 7.3 mg/dL (8.5-10.1); Chloride, Blood 109 mmol/L (98-108); Creatinine, Blood 2.09 mg/dL (0.40-1.00); Glomerular Filtration Rate 23 (60-); Glucose, Blood 91 mg/dL (70-99); Magnesium, Blood 2.3 mg/dL (1.6-2.4); Phosphorus, Blood 1.9 mg/dL (2.5-4.9); Sodium, Blood 142 mmol/L (136-145)
--- NOTE | 2021-05-24 18:06 | NUR ---
SHIFT SUMMARY: PT A/O X 3 ONE PERSON ASSIST. PT HAS BEEN COOPERATIVE WITH CARE. NO URINE OUTPUT TODAY IN PINZON. UROSTOMY HAD LIGHT PINK TINGED YELLOW URINE OUTPUT. PT C/O POSITIONAL PAIN AT NEPHTOSTOMY SITE T/OUT DAY BUT REFUSED OFFER OF PAIN MEDICATION REPORTED IT WAS TOLERABLE. PT IN NO APPARENT DISTRESS. SHE DID HAVE LOW BLOOD PRESSURE T/OUT THE DAY. OSTOMY HAS BROWN LIQUID STOOL.
[2021-05-25 05:25] LABS: Hematocrit 28.1 % (33.0-51.0); Hemoglobin 7.8 g/dL (11.5-16.0); Mean Corpuscular HGB 25.6 pg (26.0-34.0); Mean Corpuscular HGB Conc 27.8 g/dL (31.5-36.5); Mean Corpuscular Volume 92 fL (80-100); Mean Platelet Volume 11.6 fL (9.1-12.4); Platelet Count 197 K/mm3 (150-400); RDW Coefficient Variation 18.6 % (11.7-14.2); RDW Standard Deviation 59.6 fL (35.1-46.3); Red Blood Cell Count 3.05 M/mm3 (3.80-5.20); White Blood Cell Count 10.29 K/mm3 (4.00-11.30)
[2021-05-25 05:30] LABS: Magnesium, Blood 1.8 mg/dL (1.6-2.4)
[2021-05-25 05:31] LABS: Albumin, Blood 2.3 g/dL (3.4-5.0); Albumin/Globulin Ratio 0.6 (0.8-1.8); Bilirubin, Total 0.3 mg/dL (0.1-1.0); Bun/Creatinine Ratio 11.9 (12.0-20.0); Calcium, Blood 6.8 mg/dL (8.5-10.1); Creatinine, Blood 2.01 mg/dL (0.40-1.00); Globulin, Blood 3.7 g/dL (2.2-4.0); Phosphorus, Blood 3.2 mg/dL (2.5-4.9); Potassium, Blood 3.4 mmol/L (3.5-5.5)
--- NOTE | 2021-05-25 06:29 | NUR ---
SHIFT SUMMARY PT IS AN 80 Y/O FEMALE, ADMITTED FOR ACUTE RENAL FAILURE. SHE IS A&O X 2, FORGETFUL AT TIMES, AND OCCASIONALLY REFUSES PERSONAL CARE AND Q2H TURNS. 2PA TO BSC WITH R NATHALIEA. VITAL SIGNS STABLE. NO C/O ACUTE PAIN, NAUSEA OR SOB. NO ACUTE CHANGES IN PT CONDITION NOTED DURING THE NIGHT. WILL CONTINUE TO MONITOR AND TREAT PER EMAR UNTIL HAND OFF TO DAY SHIFT RN.
[2021-05-25] MEDS ORDERED: MASOPHEN325 M3 PO (12:36)
[2021-05-25] MEDS ORDERED: AMOCLA500 PO (12:36)
[2021-05-25] MEDS ORDERED: Calcium Carbon500 MG PO (12:36)
[2021-05-25] MEDS ORDERED: FAMO20 PO (12:37)
--- NOTE | 2021-05-25 15:24 | NUR ---
DISCHARGE SUMMARY: ASSISTED PT WITH GETTING DRESSED AND EMPTIED COLOSTOMY BAG AND CHANGED IT TO A NEW ONE. NEPHROSTOMY BAG EMPTIED. PINZON BAG WAS EMPTY. PT ASSISTED WITH GETTING DRESSED. DISCHARGE INSTRUCTIONS PROVIDED TO PT. PT BELONGINGS PACKED UP AND SENT WITH PT. PT TRANSFERRED TO WHEELCHAIR TRANSPORT AND SENT WITH [facility].
== END 2021-05-25 15:00 | disposition home health service (06) | DRG 682 ==
LOC: ER 11:58 → MEDS 15:03
PROVIDERS: Internal Medicine; Internal Medicine Nephrology; Student in an Organized Health Care Education/Training Program; ADMIT Internal Medicine
PROC: 0T9430Z Drainage of Left Kidney Pelvis with Drainage Device, Percutaneous Approach (ICD-10-PCS; principal; 2021-05-18)
DX: N17.9 Acute kidney failure, unspecified (principal); G93.41 Metabolic encephalopathy; N39.0 Urinary tract infection, site not specified; E44.0 Moderate protein-calorie malnutrition; E87.2 Acidosis; E87.0 Hyperosmolality and hypernatremia; N13.30 Unspecified hydronephrosis; E87.6 Hypokalemia; Z93.3 Colostomy status; Z90.49 Acquired absence of other specified parts of digestive tract; Z90.710 Acquired absence of both cervix and uterus; Z87.891 Personal history of nicotine dependence; Z66 Do not resuscitate; Z91.040 Latex allergy status; Z89.611 Acquired absence of right leg above knee; D64.9 Anemia, unspecified; E83.51 Hypocalcemia; E83.39 Other disorders of phosphorus metabolism; E88.09 Other disorders of plasma-protein metabolism, not elsewhere classified; Z79.899 Other long term (current) drug therapy; Z68.20 Body mass index [BMI] 20.0-20.9, adult
CPT/HCPCS: 0241U; 36415; 50432; 51701; 51702; 70450; 71045; 74176; 76937; 80053; 80069; 81001; 82728; 82947; 83540; 83550; 83735; 84100; 84132; 84145; 84295; 84478; 85014; 85018; 85025; 85027; 85045; 85610; 85730; 87077; 87086; 87186; 93005; 93010; 96374; 97110; 97162; 99152; 99153; 99285-25; A9270; C1729; C1751; C1769; J0295; J0610; J0696; J0881; J1644; J2250; J2405; J2550; J2916; J3010; J3411; J3475; J3480; J7030; J7040; J7042; J7050; J7060; J7070; Q9967

== ENCOUNTER 2021-06-08 11:32 | Inpatient (IN) | payer MEDICARE, OTHER ==
[~2021-06-08] VITALS: Ht 165.1 cm; Wt 45.3 kg
[~2021-06-08 11:32] MED LIST changes: +AMOCLA500 PO; +Calcium Carbon500 MG PO; +FAMO20 PO; +MASOPHEN325 M3 PO
[2021-06-08 13:39] LABS: Hematocrit 31.4 % (33.0-51.0); Hemoglobin 9.1 g/dL (11.5-16.0); Mean Corpuscular HGB 26.8 pg (26.0-34.0); Mean Corpuscular Volume 92 fL (80-100); Mean Platelet Volume 9.6 fL (9.1-12.4); NRBC ABSOLUTE 0.14 K/mm3 (0.00-0.02); NRBC Auto 1.5 /100 WBC (0.0-0.2); Platelet Count 356 K/mm3 (150-400); RDW Coefficient Variation 18.7 % (11.7-14.2); RDW Standard Deviation 60.2 fL (35.1-46.3); White Blood Cell Count 9.16 K/mm3 (4.00-11.30)
[2021-06-08 14:16] LABS: Bun/Creatinine Ratio 7.7 (12.0-20.0); Calcium, Blood 9.7 mg/dL (8.5-10.1); Creatinine, Blood 5.34 mg/dL (0.40-1.00); Potassium, Blood 4.6 mmol/L (3.5-5.5)
[2021-06-08 14:17] LABS: International Normalized Ratio 0.98; Prothrombin Time Results 10.3 Sec (9.7-11.5)
[2021-06-08 14:35] LABS: BASOPHILS PERCENT MAN 0 % (0-2); EOSINOPHILS ABSOLUTE MAN 0.09 K/mm3 (0.00-0.68); EOSINOPHILS PERCENT MAN 1 % (0-6); LYMPHOCYTES ABSOLUTE MAN 0.82 K/mm3 (0.84-5.20); LYMPHOCYTES PERCENT MAN 9 % (21-46); METAMYELOCYTE ABSOLUTE MAN 0.09 K/mm3 (0.00-0.00); METAMYELOCYTE PERCENT MAN 1 % (0-0); MONOCYTES ABSOLUTE MAN 0.36 K/mm3 (0.16-1.47); MONOCYTES PERCENT MAN 4 % (4-13); MYELOCYTE ABSOLUTE MAN 0.36 K/mm3 (0.00-0.00); MYELOCYTE PERCENT MAN 4 % (0-0); NEUTROPHILS ABSOLUTE MAN 7.41 K/mm3 (1.96-9.15); SEG NEUTROPHILS PERCENT MAN 81 % (41-73); TOTAL CELLS COUNTED 100
--- NOTE | 2021-06-08 18:53 | NUR ---
ARRIVES TO FLOOR AROUNF 1800. ALERT. VERY FORGETFUL. PINZON DRAINING YELLOW URINE. PATIENT HAS NO IDEA WHEN PINZON HAS BEEN CHANGED. OSTOMY TO LEFT LOWER QUAD. IV RT WRIST INFUSING AT 100 ML/HR. 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 LF NEPHROSTOMY TUBE CAME OUT THIS AM AND IS HERE FOR REPLACEMENT. WILL HAND OFF TO NIGHT RN
--- NOTE | 2021-06-09 05:05 | NUR ---
SHIFT SUMMARY PATIENT ALERT ORIENTED WITH SOME CONFUSION AT TIME DENIES PAIN IN THIS SHIFT LUNGS SOUND CLEAR RADHA SKIN INTACT NO NAUSEA/VOMIT NO SOB NOTED OSTOMY DRANING LOOSE STOOL,PINZON INTACT DRANING JASWANT URINE.NO ACUTE CHANGE NOTED
[2021-06-09 05:32] LABS: Hematocrit 29.4 % (33.0-51.0); Hemoglobin 8.7 g/dL (11.5-16.0); Mean Corpuscular HGB 26.6 pg (26.0-34.0); Mean Corpuscular HGB Conc 29.6 g/dL (31.5-36.5); Mean Corpuscular Volume 90 fL (80-100); NRBC ABSOLUTE 0.13 K/mm3 (0.00-0.02); NRBC Auto 1.8 /100 WBC (0.0-0.2); Platelet Count 308 K/mm3 (150-400); RDW Coefficient Variation 18.5 % (11.7-14.2); RDW Standard Deviation 60.2 fL (35.1-46.3); Red Blood Cell Count 3.27 M/mm3 (3.80-5.20); White Blood Cell Count 7.38 K/mm3 (4.00-11.30)
[2021-06-09 05:47] LABS: Albumin, Blood 2.1 g/dL (3.4-5.0); Anion Gap 9 mmol/L (6-16); Blood Urea Nitrogen 47 mg/dL (8-24); Bun/Creatinine Ratio 8.6 (12.0-20.0); CO2, Blood 27 mmol/L (21-32); Calcium, Blood 8.7 mg/dL (8.5-10.1); Chloride, Blood 103 mmol/L (98-108); Creatinine, Blood 5.48 mg/dL (0.40-1.00); Glomerular Filtration Rate 7 (60-); Glucose, Blood 101 mg/dL (70-99); Magnesium, Blood 1.4 mg/dL (1.6-2.4); Phosphorus, Blood 4.6 mg/dL (2.5-4.9); Potassium, Blood 4.2 mmol/L (3.5-5.5); Sodium, Blood 139 mmol/L (136-145)
[2021-06-09 11:05] LABS: Influenza A, PCR NEGATIVE (NEGATIVE); Influenza B, PCR NEGATIVE (NEGATIVE); Resp Syncytial Virus, PCR NEGATIVE (NEGATIVE); SARS-Cov-2 (COVID-19) PCR, MMC NEGATIVE (NEGATIVE)
--- NOTE | 2021-06-09 11:58 | NUR ---
TO O.R. TO GET NEPHROSTOMY TUBE PLACED LEFT SIDE. MASK ON. IV SALINE LOCKED.S.O. TO [facility].
[2021-06-09 13:32] LABS: Source, Urine Foley catheter
[2021-06-09 13:54] LABS: Appearance, Urine Hazy (Clear); Bilirubin, Urine Neg (Neg); Blood, Urine 5+ (Neg); Color, Urine Yellow (P-Yellow); Glucose Qualitative, Urine Neg (Neg); Ketones, Urine Neg (Neg); Leukocyte Esterase, Urine 3+ (Neg); Nitrite, Urine Neg (Neg); Protein, Urine 2+ (Neg); Urobilinogen, Urine NORM (Normal)
[2021-06-09 14:17] LABS: Red Blood Cells, Urine TNTC /hpf (0-2); White Blood Cells, Urine TNTC /hpf (0-5)
[2021-06-09 14:18] LABS: Bacteria Many /hpf; Hyaline Casts 0-2 /lpf (0-2); Squamous Epithelial Cells Mod /hpf (Few); Transitional Epithelial Cells Few /hpf (0-Rare)
[2021-06-09 14:19] LABS: Yeast/Fungi Urine Many /hpf
--- NOTE | 2021-06-09 14:42 | NUR ---
PATIENT STS AFTER FORTH B.P. THAT HER B.P ON LEFT SIDE ALWAYS LOWER THAN RT. LEFT B.P. GRADUALLY GOING UP. WILL CONTINUE ON RT SIDE FOR REST OF B.P.
--- NOTE | 2021-06-09 16:04 | NUR ---
PER PATIENT TO STAY 1-2 MORE DAYS TILL LABS--CR- LOOKS BETTER
--- NOTE | 2021-06-09 16:29 | NUR ---
ALERT. ORIENTED. GOOD APPETITE. HAS LEFT NEPHROSTOMY TUBE REPLACED. LEG BAG TO LEG VIA STRAP. VSWNL. UNLABORED RESPIRATIONS. IV FLUIDS INFUSING. PATIENT AWARE NOT GOING HOME TODAY DUE TO ABNORMAL LABS. WCTM
[2021-06-10 04:30] LABS: Hematocrit 27.4 % (33.0-51.0); Hemoglobin 7.9 g/dL (11.5-16.0)
[2021-06-10 04:53] LABS: Albumin, Blood 2.1 g/dL (3.4-5.0); Anion Gap 7 mmol/L (6-16); Blood Urea Nitrogen 46 mg/dL (8-24); Bun/Creatinine Ratio 9.2 (12.0-20.0); CO2, Blood 24 mmol/L (21-32); Calcium, Blood 8.4 mg/dL (8.5-10.1); Chloride, Blood 106 mmol/L (98-108); Creatinine, Blood 5.02 mg/dL (0.40-1.00); Glomerular Filtration Rate 8 (60-); Glucose, Blood 99 mg/dL (70-99); Magnesium, Blood 1.3 mg/dL (1.6-2.4); Phosphorus, Blood 4.7 mg/dL (2.5-4.9); Potassium, Blood 4.4 mmol/L (3.5-5.5); Sodium, Blood 137 mmol/L (136-145)
--- NOTE | 2021-06-10 17:09 | NUR ---
SHIFT SUMMARY PT AOX3; FORGETFUL AT TIMES. CHANGED OSTOMY BAG TODAY. NEPHROSTOMY BAG DRAINING AND PATENT. PT DENIES ANY PAIN OR DISCOMFORT AT THIS TIME. WAS AT BEDSIDE TODAY, AND SON IS NOW AT BEDSIDE FROM [place]. PT RECEIVED ABX. BED IS IN THE LOWEST POSITION AND CALL LIGHT WITHIN REACH
[2021-06-11 04:47] LABS: BASOPHILS ABSOLUTE AUTO 0.03 K/mm3 (0.00-0.23); BASOPHILS PERCENT AUTO 1 % (0-2); EOSINOPHILS ABSOLUTE AUTO 0.19 K/mm3 (0.00-0.68); EOSINOPHILS PERCENT AUTO 3 % (0-6); Hematocrit 28.6 % (33.0-51.0); Hemoglobin 8.4 g/dL (11.5-16.0); IMMATURE GRAN ABSOLUTE AUTO 0.14 K/mm3 (0.00-0.10); IMMATURE GRAN PERCENT AUTO 3 % (0-1); LYMPHOCYTES ABSOLUTE AUTO 0.67 K/mm3 (0.84-5.20); LYMPHOCYTES PERCENT AUTO 12 % (21-46); MONOCYTES ABSOLUTE AUTO 0.93 K/mm3 (0.16-1.47); MONOCYTES PERCENT AUTO 17 % (4-13); Mean Corpuscular HGB 26.3 pg (26.0-34.0); Mean Corpuscular HGB Conc 29.4 g/dL (31.5-36.5); Mean Corpuscular Volume 89 fL (80-100); Mean Platelet Volume 9.9 fL (9.1-12.4); NEUTROPHILS PERCENT AUTO 65 % (41-73); Platelet Count 262 K/mm3 (150-400); RDW Coefficient Variation 18.5 % (11.7-14.2); White Blood Cell Count 5.56 K/mm3 (4.00-11.30)
[2021-06-11 05:01] LABS: Albumin, Blood 2.2 g/dL (3.4-5.0); Anion Gap 8 mmol/L (6-16); Blood Urea Nitrogen 44 mg/dL (8-24); Bun/Creatinine Ratio 11.2 (12.0-20.0); CO2, Blood 24 mmol/L (21-32); Calcium, Blood 8.3 mg/dL (8.5-10.1); Chloride, Blood 110 mmol/L (98-108); Creatinine, Blood 3.93 mg/dL (0.40-1.00); Glomerular Filtration Rate 11 (60-); Glucose, Blood 87 mg/dL (70-99); Magnesium, Blood 2.2 mg/dL (1.6-2.4); Phosphorus, Blood 5.2 mg/dL (2.5-4.9); Sodium, Blood 142 mmol/L (136-145)
--- NOTE | 2021-06-11 17:46 | NUR ---
SUMMARY- PT A/O X3, UP TO CHAIR FOR BREAKFAST, 1 PERSON SBA, GOOD STRENGTH ON ONE EXHISTING LEG. PT'S UROSTOMY PATENT AND DRAINING LG AMOUNTS OF CLEAR YELLLOW, EMPTIED APPROX Q2 HRS. COLOSTOMY PATENT AND EMPTIED LOOSE TO SEMI FORMED ORANGE STOOL. TOLERATING FOOD AND FLUIDS. VSS, AFIBRILE. CALLED DR SOLORIO [id number] FOR PT'S COMPLAINT OF SEVERE PAIN L FLANK, RELEIVED WITH POSITION CHANGE AND FENT 12.5MG. IN TO VISIT AND DAUGHTER AT DINNER TIME.
[2021-06-12 05:06] LABS: BASOPHILS ABSOLUTE AUTO 0.03 K/mm3 (0.00-0.23); BASOPHILS PERCENT AUTO 1 % (0-2); EOSINOPHILS ABSOLUTE AUTO 0.22 K/mm3 (0.00-0.68); EOSINOPHILS PERCENT AUTO 5 % (0-6); Hemoglobin 8.1 g/dL (11.5-16.0); IMMATURE GRAN ABSOLUTE AUTO 0.07 K/mm3 (0.00-0.10); IMMATURE GRAN PERCENT AUTO 2 % (0-1); LYMPHOCYTES ABSOLUTE AUTO 0.62 K/mm3 (0.84-5.20); LYMPHOCYTES PERCENT AUTO 13 % (21-46); MONOCYTES ABSOLUTE AUTO 0.82 K/mm3 (0.16-1.47); MONOCYTES PERCENT AUTO 17 % (4-13); Mean Corpuscular HGB 25.8 pg (26.0-34.0); Mean Corpuscular HGB Conc 28.9 g/dL (31.5-36.5); Mean Corpuscular Volume 89 fL (80-100); Mean Platelet Volume 10.1 fL (9.1-12.4); NEUTROPHILS ABSOLUTE AUTO 3.02 K/mm3 (1.96-9.15); NEUTROPHILS PERCENT AUTO 63 % (41-73); Platelet Count 264 K/mm3 (150-400); RDW Coefficient Variation 18.5 % (11.7-14.2); RDW Standard Deviation 59.5 fL (35.1-46.3); Red Blood Cell Count 3.14 M/mm3 (3.80-5.20); White Blood Cell Count 4.78 K/mm3 (4.00-11.30)
[2021-06-12 05:27] LABS: Albumin, Blood 2.1 g/dL (3.4-5.0); Anion Gap 7 mmol/L (6-16); Blood Urea Nitrogen 33 mg/dL (8-24); Bun/Creatinine Ratio 11.8 (12.0-20.0); CO2, Blood 23 mmol/L (21-32); Calcium, Blood 7.8 mg/dL (8.5-10.1); Chloride, Blood 114 mmol/L (98-108); Glomerular Filtration Rate 16 (60-); Glucose, Blood 95 mg/dL (70-99); Magnesium, Blood 1.7 mg/dL (1.6-2.4); Phosphorus, Blood 3.8 mg/dL (2.5-4.9); Potassium, Blood 3.7 mmol/L (3.5-5.5); Sodium, Blood 144 mmol/L (136-145)
--- NOTE | 2021-06-12 05:53 | NUR ---
SHIFT SUMMARY PATIENT PLEASANT LUNGS SOUND CLEAR RADHA DENIES PAIN IN THIS SHIFT NO SOB NOTED NO CHEST PAIN VOICED .NEPHROSTOMY DRANING WELL JASWANT URINE AND COLOSTOMY DRAINING LOOS STOOL NO ACUTE CHANGE NOTED
[2021-06-12] MEDS ORDERED: DIFLUCAN100 MG PO (12:36)
[2021-06-12] MEDS ORDERED: MAGNESIUM OXID500 MG PO (12:37)
[2021-06-12] MEDS ORDERED: ONDA4ODT MM (12:38)
[2021-06-12] MEDS ORDERED: VISBIOME 112.51 EACH PO (12:40)
--- NOTE | 2021-06-12 14:57 | NUR ---
PT DISCHARGED 1340 WITH DC INSTRUCTIONS INCLUDING FOLLOW UP WITH ANNETTE 06/[address] PIZARRO F/U WITH REFERAL TO UROLOGY TO MANAGE NEPHROSTOMY. NEPH SITE SECURE WITH DRESSING PLACED POST PROCEDURE ON 06/[address] HERNANDEZ. SCANT OLD DRAINAGE DRIED, REAPPLIED ANCHOR TAPE TO NEPH TUBE AND INSTRUCTED PT AND SPOUCE ON NEED OF FREQ EMPTYING AND MONITORING COLOR AND AMOUNT. TO CALL WITH CONCERNS. HOME HEALTH TO FOLLOW UP TOMORROW. WHEELCHAIR ESCORT TO PRIVATE CAR TO DRIVE PT HOME. GIVEN DIFLUCAN TAB HERE BEFORE PT LEFT SINCE THEIR PHARM CLOSED TODAY-
== END 2021-06-12 13:50 | disposition home health service (06) | DRG 683 ==
LOC: ER 11:32 → MEDS 17:47
PROVIDERS: Emergency Medicine; Family Medicine; Internal Medicine Nephrology; Nurse Practitioner Acute Care; Radiology Diagnostic Radiology; ADMIT Internal Medicine
PROC: 0T9430Z Drainage of Left Kidney Pelvis with Drainage Device, Percutaneous Approach (ICD-10-PCS; principal; 2021-06-12)
DX: N17.9 Acute kidney failure, unspecified (principal); E87.2 Acidosis; N39.0 Urinary tract infection, site not specified; T83.022A Displacement of nephrostomy catheter, initial encounter; N18.5 Chronic kidney disease, stage 5; N13.30 Unspecified hydronephrosis; N25.81 Secondary hyperparathyroidism of renal origin; R33.9 Retention of urine, unspecified; E86.9 Volume depletion, unspecified; Y83.9 Surgical procedure, unspecified as the cause of abnormal reaction of the patient, or of later complication, without mention of misadventure at the time of the procedure; E83.42 Hypomagnesemia; E83.39 Other disorders of phosphorus metabolism; N13.9 Obstructive and reflux uropathy, unspecified; K21.9 Gastro-esophageal reflux disease without esophagitis; G62.9 Polyneuropathy, unspecified; Z20.822 Contact with and (suspected) exposure to COVID-19; Z66 Do not resuscitate; D63.1 Anemia in chronic kidney disease; Z79.2 Long term (current) use of antibiotics; Z90.5 Acquired absence of kidney; Z87.440 Personal history of urinary (tract) infections; Z88.8 Allergy status to other drugs, medicaments and biological substances; Z90.49 Acquired absence of other specified parts of digestive tract; Z87.442 Personal history of urinary calculi; Z85.53 Personal history of malignant neoplasm of renal pelvis; Z93.3 Colostomy status; Z87.891 Personal history of nicotine dependence; Z90.722 Acquired absence of ovaries, bilateral; Z90.710 Acquired absence of both cervix and uterus; Z79.899 Other long term (current) drug therapy; Z85.89 Personal history of malignant neoplasm of other organs and systems
CPT/HCPCS: 0241U; 36415; 50432; 74176; 80048; 80069; 81001; 83735; 85014; 85018; 85025; 85027; 85610; 85730; 87086; 87106; 96365; 99152; 99153; 99284; A9270; C1729; C1769; C1887; J0696; J0881; J1450; J1644; J2250; J3010; J3475; J7030; J7050; J7070; Q9967

== ENCOUNTER → 2021-08-01 | Outpatient (CLI) | payer MEDICARE, OTHER ==
[~2021-08-01] MED LIST changes: +DIFLUCAN100 MG PO; +MAGNESIUM OXID500 MG PO; +ONDA4ODT MM; +VISBIOME 112.51 EACH PO
[2021-08-01 18:09] LABS: Source, Urine Straight Cath
[2021-08-01 19:03] LABS: Appearance, Urine Cloudy (Clear); Bilirubin, Urine Neg (Neg); Blood, Urine 5+ (Neg); Color, Urine Yellow (P-Yellow); Glucose Qualitative, Urine Neg (Neg); Ketones, Urine Neg (Neg); Leukocyte Esterase, Urine 3+ (Neg); Nitrite, Urine Neg (Neg); Protein, Urine 3+ (Neg); Specific Gravity, Urine 1.015 (1.003-1.022); Urobilinogen, Urine NORM (Normal)
[2021-08-01 19:18] LABS: Granular Casts Rare /lpf (0); Red Blood Cells, Urine 25-50 /hpf (0-2); White Blood Cells, Urine 50-100 /hpf (0-5)
[2021-08-01 19:19] LABS: Bacteria Many /hpf; Squamous Epithelial Cells Rare /hpf (Few); Yeast/Fungi Urine Few /hpf
== END | disposition home or self-care (01) ==
LOC: LAB SHORT 13:15 → LAB 13:15
PROVIDERS: Internal Medicine Nephrology
DX: N39.0 Urinary tract infection, site not specified (principal)
CPT/HCPCS: 81001; 87077; 87086; 87186

== ENCOUNTER → 2021-09-09 | Outpatient (CLI) | payer MEDICARE, OTHER ==
[2021-09-09 15:05] LABS: Source, Urine Foley catheter
[2021-09-09 15:28] LABS: Appearance, Urine Hazy (Clear); Bilirubin, Urine Neg (Neg); Blood, Urine 5+ (Neg); Glucose Qualitative, Urine Neg (Neg); Ketones, Urine Neg (Neg); Leukocyte Esterase, Urine 3+ (Neg); Nitrite, Urine Pos (Neg); Protein, Urine 3+ (Neg); Urobilinogen, Urine NORM (Normal)
[2021-09-09 15:39] LABS: Color, Urine Pale Yellow (P-Yellow)
[2021-09-09 15:41] LABS: White Blood Cells, Urine 25-50 /hpf (0-5)
[2021-09-09 15:42] LABS: Bacteria Many /hpf; Squamous Epithelial Cells Rare /hpf (Few)
== END | disposition home or self-care (01) ==
LOC: LAB 15:03 → LAB SHORT 15:03
PROVIDERS: Internal Medicine Nephrology
DX: N39.0 Urinary tract infection, site not specified (principal)
CPT/HCPCS: 81001; 87077; 87086; 87186

== ENCOUNTER → 2021-10-31 | Outpatient (CLI) | payer MEDICARE, OTHER ==
[2021-10-31 13:38] LABS: Source, Urine Clean Catch
[2021-10-31 18:22] LABS: Appearance, Urine Turbid (Clear); Bilirubin, Urine Neg (Neg); Blood, Urine 4+ (Neg); Color, Urine Yellow (P-Yellow); Glucose Qualitative, Urine Neg (Neg); Ketones, Urine Neg (Neg); Leukocyte Esterase, Urine 3+ (Neg); Nitrite, Urine Neg (Neg); Protein, Urine 3+ (Neg); Urobilinogen, Urine NORM (Normal)
[2021-10-31 18:44] LABS: Bacteria Many /hpf; Red Blood Cells, Urine 25-50 /hpf (0-2); Squamous Epithelial Cells Mod /hpf (Few); White Blood Cells, Urine TNTC /hpf (0-5); Yeast/Fungi Urine Many /hpf
[2021-10-31 18:45] LABS: Hyaline Casts 0-2 /lpf (0-2); RBC Cast 0-2 /lpf (0)
== END | disposition home or self-care (01) ==
LOC: LAB SHORT 13:15 → LAB 13:15
PROVIDERS: Urology Female Pelvic Medicine and Reconstructive Surgery
DX: N20.2 Calculus of kidney with calculus of ureter (principal)
CPT/HCPCS: 81001

== ENCOUNTER → 2021-11-25 | Outpatient (CLI) | payer MEDICARE, OTHER ==
[2021-11-25 11:06] LABS: Source, Urine Clean Catch
[2021-11-25 13:49] LABS: Appearance, Urine Cloudy (Clear); Bilirubin, Urine Neg (Neg); Blood, Urine 5+ (Neg); Color, Urine Yellow (P-Yellow); Glucose Qualitative, Urine Neg (Neg); Ketones, Urine Neg (Neg); Leukocyte Esterase, Urine 3+ (Neg); Nitrite, Urine Neg (Neg); Protein, Urine 3+ (Neg); Urobilinogen, Urine NORM (Normal)
[2021-11-25 14:01] LABS: Bacteria Many /hpf; Granular Casts 0-2 /lpf (0); Hyaline Casts 0-2 /lpf (0-2); Red Blood Cells, Urine TNTC /hpf (0-2); Squamous Epithelial Cells Mod /hpf (Few); Transitional Epithelial Cells Rare /hpf (0-Rare); White Blood Cells, Urine TNTC /hpf (0-5)
== END | disposition home or self-care (01) ==
LOC: LAB SHORT 09:04 → LAB 09:04 → EDSTATUS 09-14 13:35 → LAB FUT 09-14 13:35
PROVIDERS: Physician Assistant
DX: N39.0 Urinary tract infection, site not specified (principal)
CPT/HCPCS: 81001; 87086; 87106

== ENCOUNTER 2021-12-20 09:58 | Inpatient (IN) | payer MEDICARE, OTHER ==
[~2021-12-20] VITALS: Ht 167.6 cm; Wt 43.3 kg
[2021-12-20 10:42] LABS: BASOPHILS ABSOLUTE AUTO 0.05 K/mm3 (0.00-0.23); BASOPHILS PERCENT AUTO 0 % (0-2); EOSINOPHILS ABSOLUTE AUTO 0.03 K/mm3 (0.00-0.68); EOSINOPHILS PERCENT AUTO 0 % (0-6); Hematocrit 32.9 % (33.0-51.0); Hemoglobin 10.3 g/dL (11.5-16.0); IMMATURE GRAN ABSOLUTE AUTO 0.21 K/mm3 (0.00-0.10); IMMATURE GRAN PERCENT AUTO 2 % (0-1); LYMPHOCYTES ABSOLUTE AUTO 0.52 K/mm3 (0.84-5.20); LYMPHOCYTES PERCENT AUTO 4 % (21-46); MONOCYTES PERCENT AUTO 8 % (4-13); Mean Corpuscular HGB 24.6 pg (26.0-34.0); Mean Corpuscular HGB Conc 31.3 g/dL (31.5-36.5); Mean Corpuscular Volume 79 fL (80-100); Mean Platelet Volume 9.2 fL (9.1-12.4); NEUTROPHILS ABSOLUTE AUTO 10.77 K/mm3 (1.96-9.15); NEUTROPHILS PERCENT AUTO 86 % (41-73); Platelet Count 631 K/mm3 (150-400); RDW Standard Deviation 48.6 fL (35.1-46.3); Red Blood Cell Count 4.19 M/mm3 (3.80-5.20); White Blood Cell Count 12.58 K/mm3 (4.00-11.30)
[2021-12-20 11:03] LABS: Albumin, Blood 2.9 g/dL (3.4-5.0); Albumin/Globulin Ratio 0.6 (0.8-1.8); Bilirubin, Total 0.3 mg/dL (0.1-1.0); Calcium, Blood 10.1 mg/dL (8.5-10.1); Creatinine, Blood 6.25 mg/dL (0.40-1.00); Globulin, Blood 4.9 g/dL (2.2-4.0); Potassium, Blood 6.8 mmol/L (3.5-5.5); Total Protein, Blood 7.8 g/dL (6.4-8.2)
[2021-12-20 12:15] LABS: Source, Urine Clean Catch
[2021-12-20 12:20] LABS: Appearance, Urine Hazy (Clear); Bilirubin, Urine Neg (Neg); Blood, Urine 5+ (Neg); Color, Urine Yellow (P-Yellow); Glucose Qualitative, Urine Neg (Neg); Ketones, Urine 1+ (Neg); Leukocyte Esterase, Urine 3+ (Neg); Nitrite, Urine Neg (Neg); Protein, Urine 3+ (Neg); Specific Gravity, Urine 1.015 (1.003-1.022); Urobilinogen, Urine NORM (Normal)
[2021-12-20 13:08] LABS: Bacteria Many /hpf; Squamous Epithelial Cells Not Seen /hpf (Few); White Blood Cells, Urine TNTC /hpf (0-5)
[2021-12-20 17:40] LABS: Bun/Creatinine Ratio 17.5 (12.0-20.0); Calcium, Blood 8.7 mg/dL (8.5-10.1); Creatinine, Blood 5.55 mg/dL (0.40-1.00); Potassium, Blood 5.8 mmol/L (3.5-5.5)
--- NOTE | 2021-12-20 21:32 | NUR ---
ADMIT NOTE HANDOFF RECEIVED FROM [employer] SUPERVISORRAHEL DUMONT. PT ARRIVED TO FLOOR VIA RNEY. CONSULT JACQUELINE'S OFFICE FAXED, CONSULT ANNETTE CALLED. NEW ORDERS RECEIVED. BLADDER SCAN IS IN PROCESS. NEW IV FLUIDS HAVE BEEN ORDERED. LR FLUID IS DC'D. TELEMETRY IS IN PLACE AND MONITORING. PT ORIENTED TO UNIT. CALL BUTTON WITHIN REACH
--- NOTE | 2021-12-20 21:35 | NUR ---
BLADDER SCAN 108 CC'S OF URINE
[2021-12-21] MEDS ORDERED: HYOSCYAMINE0.125 MG SL (00:46)
[2021-12-21] MEDS ORDERED: ALLO300 PO (00:47)
[2021-12-21] MEDS ORDERED: BACTRIM DS TAB1 EAC6 PO (00:48)
--- NOTE | 2021-12-21 05:15 | NUR ---
SHIFT SUMMARY PT ARRIVED TO THE UNIT FROM THE ER AT APPROX 2030. SHE WAS ADMITTED FOR MAGALYS ON CKD. SHE IS NPO AWAITING A CONSULT WITH JACQUELINE BECAUSE HE MAY OPT TO PLACE A NEW NEPHROSTOMY TUBE. SODIUM BICARB IN NS IS INFUSING AT 75. PT IS AN INCONTINENT VOIDER AND HAS A OSTOMY IN PLACE. OSTOMY BAG WAS FULL SHORTLY AFTER ARRIVAL AND THE BAG WAS REPLACED. PT C/O OF NAUSEA AND RECIEVED IV ZOFRAN AT 2053 WHICH RELIEVED. BRIEF BOUTS OF NAUSEA SINCE THEN DURING PT CARE, NO EMISIS. AT 0500 BP WAS MEASURED AT 77/58 AND PT WAS CONCERNED ABOUT URINE RETENTION. I RECHECKED HER BP ON HER RIGHT ARM AND GOT 137/48. A BLADDER SCAN REVEALED 82 ML IN HER BLADDER. NO ACUTE EVENTS, PT PLEASANT AND COOPERATIVE WITH CARE.
[2021-12-21 05:18] LABS: BASOPHILS ABSOLUTE AUTO 0.03 K/mm3 (0.00-0.23); BASOPHILS PERCENT AUTO 1 % (0-2); EOSINOPHILS PERCENT AUTO 2 % (0-6); Hemoglobin 9.1 g/dL (11.5-16.0); IMMATURE GRAN ABSOLUTE AUTO 0.06 K/mm3 (0.00-0.10); IMMATURE GRAN PERCENT AUTO 1 % (0-1); LYMPHOCYTES ABSOLUTE AUTO 0.54 K/mm3 (0.84-5.20); LYMPHOCYTES PERCENT AUTO 9 % (21-46); MONOCYTES ABSOLUTE AUTO 0.71 K/mm3 (0.16-1.47); MONOCYTES PERCENT AUTO 12 % (4-13); Mean Corpuscular HGB 24.3 pg (26.0-34.0); Mean Corpuscular HGB Conc 31.4 g/dL (31.5-36.5); Mean Corpuscular Volume 78 fL (80-100); NEUTROPHILS ABSOLUTE AUTO 4.51 K/mm3 (1.96-9.15); NEUTROPHILS PERCENT AUTO 76 % (41-73); Platelet Count 584 K/mm3 (150-400); RDW Coefficient Variation 16.6 % (11.7-14.2); RDW Standard Deviation 47.2 fL (35.1-46.3); Red Blood Cell Count 3.74 M/mm3 (3.80-5.20); White Blood Cell Count 5.95 K/mm3 (4.00-11.30)
[2021-12-21 05:51] LABS: Albumin, Blood 2.6 g/dL (3.4-5.0); Anion Gap 9 mmol/L (6-16); Blood Urea Nitrogen 86 mg/dL (8-24); Bun/Creatinine Ratio 17.8 (12.0-20.0); CO2, Blood 23 mmol/L (21-32); Calcium, Blood 9.3 mg/dL (8.5-10.1); Chloride, Blood 99 mmol/L (98-108); Creatinine, Blood 4.84 mg/dL (0.40-1.00); Glomerular Filtration Rate 9 (60-); Glucose, Blood 110 mg/dL (70-99); Magnesium, Blood 1.6 mg/dL (1.6-2.4); Phosphorus, Blood 5.6 mg/dL (2.5-4.9); Potassium, Blood 4.8 mmol/L (3.5-5.5); Sodium, Blood 131 mmol/L (136-145)
[2021-12-21 13:38] LABS: Albumin, Blood 2.4 g/dL (3.4-5.0); Anion Gap 8 mmol/L (6-16); Blood Urea Nitrogen 78 mg/dL (8-24); Bun/Creatinine Ratio 17.8 (12.0-20.0); CO2, Blood 24 mmol/L (21-32); Calcium, Blood 9.3 mg/dL (8.5-10.1); Chloride, Blood 102 mmol/L (98-108); Creatinine, Blood 4.39 mg/dL (0.40-1.00); Glomerular Filtration Rate 10 (60-); Glucose, Blood 98 mg/dL (70-99); Phosphorus, Blood 4.9 mg/dL (2.5-4.9); Potassium, Blood 4.8 mmol/L (3.5-5.5); Sodium, Blood 134 mmol/L (136-145)
--- NOTE | 2021-12-21 15:42 | NUR ---
[facility] CALLED AND REPORTED PT'S PROCEDURE IS BEING PUSHED TO TOMORROW. PT AND DAUGHTER NOTIFIED. COVID TEST SENT. PT CAN EAT NOW AND NPO AFTER MIDNIGHT.
--- NOTE | 2021-12-21 16:05 | NUR ---
SHIFT SUMMARY- PT A/OX3, BUT FORGETFUL AT TIMES. PT DENIES ANY COMPLAINTS T/O THE DAY. LS CLEAR, ON ROOM AIR. TELE SR AT 79. PT WITH LEFT COLOSTOMY WITH LIQUID BROWN OUTPUT. RIGHT LEG AMPUTATION. IV TO LAC INFILTRATED, SITE WRAPPED PER PHARMACY. NEW POWERGLIDE TO CAMILLE PLACED. BICARB GTT RUNNING. NEPHROSTOMY TO BE PLACED TOMORROW, NPO AFTER MIDNIGHT. PT VOIDS SMALL AMOUNT OF URINE WITH URINAL AND HAS HAD SMALL AMOUNTS OF INCONT VOIDS. DRESSING TO COCCYX IN PLACE. NO OTHER ACUTE CHANGES THIS SHIFT.
[2021-12-21 16:37] LABS: SARS-Cov-2 (COVID-19) PCR, MMC NEGATIVE (NEGATIVE)
[2021-12-22 05:25] LABS: Hematocrit 25.9 % (33.0-51.0); Hemoglobin 8.1 g/dL (11.5-16.0)
[2021-12-22 05:47] LABS: Albumin, Blood 2.1 g/dL (3.4-5.0); Anion Gap 10 mmol/L (6-16); Blood Urea Nitrogen 58 mg/dL (8-24); Bun/Creatinine Ratio 17.6 (12.0-20.0); CO2, Blood 27 mmol/L (21-32); Calcium, Blood 8.4 mg/dL (8.5-10.1); Chloride, Blood 103 mmol/L (98-108); Creatinine, Blood 3.29 mg/dL (0.40-1.00); Glomerular Filtration Rate 14 (60-); Glucose, Blood 95 mg/dL (70-99); Magnesium, Blood 1.9 mg/dL (1.6-2.4); Phosphorus, Blood 4.2 mg/dL (2.5-4.9); Sodium, Blood 140 mmol/L (136-145)
--- NOTE | 2021-12-22 06:45 | NUR ---
SHIFT SUMMARY PT'S SPOUSE SPENT THE NIGHT. PT RCVD CONTINUOUS INFUSION OF NS WITH BICARB UNTIL [address] BRYANT D/C THE ORDER AND PUT IN A NEW ORDER FOR CONTINUOUS NS WHICH IS CURRENTLY RUNNING. PT SLEPT WELL T/O THE NIGHT, ATTENDS AND OSTOMY BAG WERE CHANGED AND CLEANED NEEDED. NO C/O OF PAIN, NAUSEA OR DISCOMFORT. VSS, NO ACUTE CHANGES, PT PLEASANT AND COOPERATIVE WITH CARE.
[2021-12-22 11:15] LABS: Source, Urine Nephrostomy
[2021-12-22 11:20] LABS: Bilirubin, Urine Neg (Neg); Blood, Urine 5+ (Neg); Glucose Qualitative, Urine Neg (Neg); Ketones, Urine Neg (Neg); Leukocyte Esterase, Urine 3+ (Neg); Nitrite, Urine Neg (Neg); Protein, Urine 3+ (Neg); Specific Gravity, Urine 1.015 (1.003-1.022); Urobilinogen, Urine NORM (Normal)
[2021-12-22 11:29] LABS: Amorphous Light (0-Heavy); Appearance, Urine Cloudy (Clear); Bacteria Mod /hpf; Color, Urine Red (P-Yellow); Mucus Light (0-Heavy); Red Blood Cells, Urine TNTC /hpf (0-2); Squamous Epithelial Cells Not Seen /hpf (Few); White Blood Cells, Urine TNTC /hpf (0-5)
--- NOTE | 2021-12-22 17:42 | NUR ---
D/C SHIFT SUMMARY- PT TO PROCEDURE. NEPHROSTOMY TUBE DRAINING RED CLOUDY URINE. SITE DRY, BANDAGE INTACT. PT B/P SOFT AT FIRST IMPROVED BEFORE DISCHARGE. A&O X3. FAMILY AT BEDSIDE. PT ANXIOUS AT TIMES. APPETITE IMPROVING AFTER PROCEDURE. POWERGLIDE PATENT DURING SHIFT. AFEBRILE. INCONTENT. OSTOMY BAG CHANGE TIMES X2. STOMA PINK. OSTOMY SITE DRY AND CLEAN. BED ALARM ON, SIDE RAILS UP, AND CALL LIGHT IN REACH. D/C PT WITH ALL BELONGINGS IN HAND/FAMILY. [facility] DRIVERS TO TRANSFER PT VIA GURNEY TO HOME. EDUCATED AND GIVEN PAPERWORK TO [facility]. DRIVERS.
== END 2021-12-22 15:46 | disposition home health service (06) | DRG 683 ==
LOC: ER 09:58 → MEDS 19:04
PROVIDERS: Family Medicine; Internal Medicine Nephrology; Physician Assistant; Radiology Diagnostic Radiology; ADMIT Internal Medicine
PROC: 0T773DZ Dilation of Left Ureter with Intraluminal Device, Percutaneous Approach (ICD-10-PCS; principal; 2021-12-22)
PROC: BT121ZZ Fluoroscopy of Left Kidney using Low Osmolar Contrast (ICD-10-PCS; 2021-12-22)
PROC: BT42ZZZ Ultrasonography of Left Kidney (ICD-10-PCS; 2021-12-22)
PROC: 0T25X0Z Change Drainage Device in Kidney, External Approach (ICD-10-PCS; 2021-12-22)
DX: N17.9 Acute kidney failure, unspecified (principal); E87.1 Hypo-osmolality and hyponatremia; E87.20 Acidosis, unspecified; Z68.1 Body mass index [BMI] 19.9 or less, adult; D63.1 Anemia in chronic kidney disease; E87.5 Hyperkalemia; N18.5 Chronic kidney disease, stage 5; N13.6 Pyonephrosis; E87.6 Hypokalemia; Z20.822 Contact with and (suspected) exposure to COVID-19; N13.9 Obstructive and reflux uropathy, unspecified; E21.3 Hyperparathyroidism, unspecified; Z96.0 Presence of urogenital implants; E86.9 Volume depletion, unspecified; Z85.828 Personal history of other malignant neoplasm of skin; Z90.5 Acquired absence of kidney; Z98.890 Other specified postprocedural states; Z87.442 Personal history of urinary calculi; Z90.49 Acquired absence of other specified parts of digestive tract; Z90.710 Acquired absence of both cervix and uterus; Z93.3 Colostomy status; Z91.048 Other nonmedicinal substance allergy status; Z79.899 Other long term (current) drug therapy; Z79.2 Long term (current) use of antibiotics; Z87.891 Personal history of nicotine dependence; Z90.722 Acquired absence of ovaries, bilateral; R62.7 Adult failure to thrive; Z89.611 Acquired absence of right leg above knee
CPT/HCPCS: 36415; 50695; 51701; 74176; 76937; 80048; 80053; 80069; 81001; 83735; 85014; 85018; 85025; 87086; 93005; 93010; 96365-59; 96375-59; 99152; 99153; 99285-25; A9270; C1729; C1751; C1769; C1887; C1894; C2617; J0696; J0881; J1815; J2250; J2405; J3010; J7030; J7040; J7120; Q9967; U0004

== ENCOUNTER → 2022-01-04 | Outpatient (CLI) | payer MEDICARE, OTHER ==
[~2022-01-04] MED LIST changes: +BACTRIM DS TAB1 EAC6 PO; +HYOSCYAMINE0.125 MG SL
[2022-01-04 18:51] LABS: Source, Urine Urostomy Bag
[2022-01-04 19:05] LABS: Appearance, Urine Turbid (Clear); Bilirubin, Urine Neg (Neg); Blood, Urine 4+ (Neg); Color, Urine Yellow (P-Yellow); Glucose Qualitative, Urine Neg (Neg); Ketones, Urine Neg (Neg); Leukocyte Esterase, Urine 3+ (Neg); Nitrite, Urine Neg (Neg); Protein, Urine 4+ (Neg); Urobilinogen, Urine NORM (Normal)
[2022-01-04 19:39] LABS: Bacteria Many /hpf; Granular Casts 25-50 /lpf (0); White Blood Cells, Urine TNTC /hpf (0-5)
[2022-01-04 19:40] LABS: Squamous Epithelial Cells Mod /hpf (Few)
[2022-01-04 19:41] LABS: Transitional Epithelial Cells Mod /hpf (0-Rare)
[2022-01-04 19:42] LABS: Renal Epithelial Mod /hpf (0-Rare)
== END ==
LOC: LAB SHORT 15:30 → LAB 15:30
PROVIDERS: Family Medicine
DX: N13.6 Pyonephrosis (principal); N18.4 Chronic kidney disease, stage 4 (severe); N39.0 Urinary tract infection, site not specified
CPT/HCPCS: 81001; 87086; 87106

== ENCOUNTER 2022-02-03 12:36 | Emergency (ER) | payer MEDICARE, OTHER ==
[~2022-02-03] VITALS: Ht 165.1 cm; Wt 45.4 kg
[2022-02-03 13:56] LABS: BASOPHILS ABSOLUTE AUTO 0.04 K/mm3 (0.00-0.23); BASOPHILS PERCENT AUTO 0 % (0-2); EOSINOPHILS ABSOLUTE AUTO 0.02 K/mm3 (0.00-0.68); EOSINOPHILS PERCENT AUTO 0 % (0-6); Hematocrit 36.1 % (33.0-51.0); Hemoglobin 10.8 g/dL (11.5-16.0); IMMATURE GRAN ABSOLUTE AUTO 0.07 K/mm3 (0.00-0.10); IMMATURE GRAN PERCENT AUTO 1 % (0-1); LYMPHOCYTES ABSOLUTE AUTO 0.44 K/mm3 (0.84-5.20); LYMPHOCYTES PERCENT AUTO 4 % (21-46); MONOCYTES ABSOLUTE AUTO 0.72 K/mm3 (0.16-1.47); MONOCYTES PERCENT AUTO 7 % (4-13); Mean Corpuscular HGB 22.2 pg (26.0-34.0); Mean Corpuscular HGB Conc 29.9 g/dL (31.5-36.5); Mean Corpuscular Volume 74 fL (80-100); NEUTROPHILS ABSOLUTE AUTO 9.24 K/mm3 (1.96-9.15); NEUTROPHILS PERCENT AUTO 88 % (41-73); Platelet Count 438 K/mm3 (150-400); RDW Coefficient Variation 19.2 % (11.7-14.2); Red Blood Cell Count 4.86 M/mm3 (3.80-5.20); White Blood Cell Count 10.53 K/mm3 (4.00-11.30)
[2022-02-03 14:20] LABS: Albumin, Blood 2.7 g/dL (3.4-5.0); Albumin/Globulin Ratio 0.5 (0.8-1.8); Bilirubin, Total 0.3 mg/dL (0.1-1.0); Bun/Creatinine Ratio 21.9 (12.0-20.0); Calcium, Blood 8.4 mg/dL (8.5-10.1); Creatinine, Blood 4.8 mg/dL (0.40-1.00); Globulin, Blood 5.1 g/dL (2.2-4.0); Total Protein, Blood 7.8 g/dL (6.4-8.2)
[2022-02-03 15:53] LABS: Source, Urine Clean Catch
[2022-02-03 15:58] LABS: Appearance, Urine Cloudy (Clear); Bilirubin, Urine Neg (Neg); Blood, Urine 5+ (Neg); Color, Urine Yellow (P-Yellow); Glucose Qualitative, Urine Neg (Neg); Ketones, Urine Neg (Neg); Leukocyte Esterase, Urine 3+ (Neg); Nitrite, Urine Neg (Neg); Protein, Urine 3+ (Neg); Specific Gravity, Urine 1.015 (1.003-1.022); Urobilinogen, Urine NORM (Normal)
[2022-02-03 16:19] LABS: Red Blood Cells, Urine 25-50 /hpf (0-2); White Blood Cells, Urine TNTC /hpf (0-5); Yeast/Fungi Urine Many /hpf
[2022-02-03 16:20] LABS: Bacteria Many /hpf; Granular Casts 0-2 /lpf (0); Renal Epithelial Few /hpf (0-Rare); Squamous Epithelial Cells Rare /hpf (Few)
[2022-02-03] MEDS ORDERED: CEFD300 PO (16:31)
== END 2022-02-03 17:36 | disposition home or self-care (01) ==
LOC: ER 12:36
PROVIDERS: Physician Assistant
DX: N39.0 Urinary tract infection, site not specified (principal); N18.5 Chronic kidney disease, stage 5; Z91.09 Other allergy status, other than to drugs and biological substances; Z79.899 Other long term (current) drug therapy; Z87.891 Personal history of nicotine dependence
CPT/HCPCS: 36415; 74177; 80053; 81001; 83605; 84484; 85025; 87086; 87106; A9270; J0696; J7120; Q9967

== ENCOUNTER 2022-02-04 21:04 | Inpatient (IN) | payer MEDICARE, OTHER ==
[~2022-02-04 21:04] MED LIST changes: +CEFD300 PO
[2022-02-11] MEDS ORDERED: ELIQUIS5 M2 PO (11:35)
== END 2022-02-11 13:25 | disposition home or self-care (01) | DRG 982 ==
DX: T83.022A Displacement of nephrostomy catheter, initial encounter (principal); E87.1 Hypo-osmolality and hyponatremia; N13.30 Unspecified hydronephrosis; I82.402 Acute embolism and thrombosis of unspecified deep veins of left lower extremity; E87.20 Acidosis, unspecified; N17.9 Acute kidney failure, unspecified; N18.5 Chronic kidney disease, stage 5; N25.81 Secondary hyperparathyroidism of renal origin; E87.6 Hypokalemia; E83.39 Other disorders of phosphorus metabolism; E83.42 Hypomagnesemia; D63.1 Anemia in chronic kidney disease; E87.5 Hyperkalemia; R31.9 Hematuria, unspecified; N13.9 Obstructive and reflux uropathy, unspecified; E86.9 Volume depletion, unspecified; K43.5 Parastomal hernia without obstruction or gangrene; E87.70 Fluid overload, unspecified; E86.0 Dehydration; F03.90 Unspecified dementia, unspecified severity, without behavioral disturbance, psychotic disturbance, mood disturbance, and anxiety; W19.XXXA Unspecified fall, initial encounter; Z90.49 Acquired absence of other specified parts of digestive tract; Z90.710 Acquired absence of both cervix and uterus; Z90.5 Acquired absence of kidney; Z79.01 Long term (current) use of anticoagulants; Z90.722 Acquired absence of ovaries, bilateral; Z93.3 Colostomy status; Z91.048 Other nonmedicinal substance allergy status; Z79.899 Other long term (current) drug therapy; Z79.2 Long term (current) use of antibiotics; Z87.891 Personal history of nicotine dependence; Z85.53 Personal history of malignant neoplasm of renal pelvis

== ENCOUNTER 2022-03-31 16:21 | Inpatient (IN) | payer MEDICARE, OTHER ==
[~2022-03-31] VITALS: Ht 152.4 cm; Wt 38.4 kg
[~2022-03-31 16:21] MED LIST changes: +ELIQUIS5 M2 PO
--- NOTE | 2022-03-31 19:06 | NUR ---
Shift Summary Direct admit arrived at 1500 with family at bedside. A/Ox3. On RA. 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 Photo obtained and in chart. 1p SBA pivot transfer from w/c to bed. Med rec incomplete, patient and family advised to bring in list of home meds however patient stated "I don't want anyone going through my things at home". When asking about POLST, WILL, Advanced Directive, and Power of Ob Nurse, patient got offended and said these questions are personal. Tried to explain the importance of each but patient refused to answer. Physician med orders were faxed to pharmacy, lab orders entered by this RN.
[2022-04-01 00:42] LABS: Source, Urine Nephrostomy
[2022-04-01 01:23] LABS: Bilirubin, Urine Neg (Neg); Blood, Urine 5+ (Neg); Glucose Qualitative, Urine Neg (Neg); Ketones, Urine Neg (Neg); Leukocyte Esterase, Urine 3+ (Neg); Nitrite, Urine Neg (Neg); Protein, Urine 3+ (Neg); Specific Gravity, Urine 1.015 (1.003-1.022); Urobilinogen, Urine NORM (Normal)
[2022-04-01 01:38] LABS: BASOPHILS ABSOLUTE AUTO 0.04 K/mm3 (0.00-0.23); BASOPHILS PERCENT AUTO 0 % (0-2); EOSINOPHILS PERCENT AUTO 1 % (0-6); Hematocrit 25.9 % (33.0-51.0); Hemoglobin 7.8 g/dL (11.5-16.0); IMMATURE GRAN ABSOLUTE AUTO 0.19 K/mm3 (0.00-0.10); IMMATURE GRAN PERCENT AUTO 2 % (0-1); LYMPHOCYTES ABSOLUTE AUTO 1.28 K/mm3 (0.84-5.20); LYMPHOCYTES PERCENT AUTO 14 % (21-46); MONOCYTES ABSOLUTE AUTO 1.19 K/mm3 (0.16-1.47); MONOCYTES PERCENT AUTO 13 % (4-13); Mean Corpuscular HGB 23.9 pg (26.0-34.0); Mean Corpuscular HGB Conc 30.1 g/dL (31.5-36.5); Mean Corpuscular Volume 79 fL (80-100); Mean Platelet Volume 8.9 fL (9.1-12.4); NEUTROPHILS ABSOLUTE AUTO 6.66 K/mm3 (1.96-9.15); NEUTROPHILS PERCENT AUTO 70 % (41-73); NRBC ABSOLUTE 0.08 K/mm3 (0.00-0.02); NRBC Auto 0.8 /100 WBC (0.0-0.2); Platelet Count 643 K/mm3 (150-400); RDW Coefficient Variation 20.5 % (11.7-14.2); RDW Standard Deviation 58.1 fL (35.1-46.3); Red Blood Cell Count 3.26 M/mm3 (3.80-5.20); White Blood Cell Count 9.46 K/mm3 (4.00-11.30)
[2022-04-01 01:41] LABS: Appearance, Urine Turbid (Clear); Color, Urine Yellow (P-Yellow)
[2022-04-01 01:43] LABS: Bacteria Many /hpf; Squamous Epithelial Cells Not Seen /hpf (Few); White Blood Cells, Urine TNTC /hpf (0-5)
[2022-04-01 01:55] LABS: International Normalized Ratio 1.09; Prothrombin Time Results 11.4 Sec (9.7-11.5)
[2022-04-01 02:01] LABS: Albumin, Blood 2.4 g/dL (3.4-5.0); Albumin/Globulin Ratio 0.5 (0.8-1.8); Bilirubin, Total 0.2 mg/dL (0.1-1.0); Bun/Creatinine Ratio 17.2 (12.0-20.0); Calcium, Blood 8.6 mg/dL (8.5-10.1); Creatinine, Blood 4.76 mg/dL (0.40-1.00); Globulin, Blood 4.5 g/dL (2.2-4.0); Magnesium, Blood 1.2 mg/dL (1.6-2.4); Phosphorus, Blood 5.6 mg/dL (2.5-4.9); Potassium, Blood 3.2 mmol/L (3.5-5.5); Total Protein, Blood 6.9 g/dL (6.4-8.2)
--- NOTE | 2022-04-01 05:59 | NUR ---
SHIFT SUMMARY NOC PT A/O X 4. NEW L NEPHROSTOMY IN PLACE DRAINING YELLOW URINE. PT HAS OSTOMY IN LLQ WITH ANGUIANO STOOL. PT HAS R LEG AMPUTATION UP TO PELVIS 40 YEARS AGO. PT IS INC OF URINE AND STOOL. PT BP WAS SOFT AND SODIUM BICARB ORDERED TO RUN @ 500 MLS. MIDODRINE ORDERED TID. PT POTASSIUM WAS 3.2 AND 20MEQ IV ORDERED. PT MG WAS 1.2 AND MG SULFATE 2GM IV ORDERED. PT HAS HEPARIN DRIP ORDERED. PT IS EXTREMELY HARD IV START AND IV IS IN LAC WITH ULTRASOUND PLACEMENT. PT HAS POST SURGICAL PN AND TAKING FENTANYL PRN. PT IS CURRENTLY RESTING IN BED WITH BED IN LOWEST POSITION AND CALL LIGHT WITHIN REACH. TM.
--- NOTE | 2022-04-01 07:15 | NUR ---
DUE TO THE HARD PLACEMENT OF IV LAST NIGHT, ALL MEDICATIONS AREA RUNNING LATE. THIS OFFICE RN CONTACTED PROVIDER DR. Glenn HERR, WHO IS GOING TO CONTACT LEAD PROVIDER TO COME UP WITH DIRECTION FOR MEDS/CARE. BP AT LAST CHEDK 83/45- AROUND 7AM.
--- NOTE | 2022-04-01 10:23 | NUR ---
AFTER PATIENTS BP FAILED TO RAISE AFTER THE BOLUS NS AND AFTER THE MIDODRINE, DR GONZALES MADE THE DECISION TO TRANSFER PATIENT TO THE ICU (BED 10). BELONINGS WERE SENT WITH THE PATIENT. IV FLUIDS THAT REMAINED FROM LAST NOC WERE ALSO SENT. PHARMACY WAS NOTIFIED. FAMILY- AND SON CAME TO THE ROOM AFTER THE TRANSFER AND WERE NOTIFIED OF HER NEW LOCATION.
[2022-04-01] MEDS ORDERED: CEFD300 PO (11:43)
[2022-04-01] MEDS ORDERED: POTCIT10 PO (11:45)
[2022-04-01] MEDS ORDERED: GABA100 (11:45)
--- NOTE | 2022-04-01 12:00 | NUR ---
INITIAL ASSESSMENT ASSUMED CARE OF PATIENT FROM CHARGE NURSE. PATIENT ALERT AND ORIENTED X 4, AFEBRILE. PATIENT STATES SHE HAS CHRONIC PAIN IN "TAILBONE AND RADIATING DOWN TO L BUTT CHEEK". PATIENT STATES AT HOME SHE USES ASPERCREME OR A PATCH. L LEG AMPUTATED UP TO PELVIS. WEAK BUT ABLE TO MOVE OTHER 3 EXTREMITIES. PATIENT SATTING 90% AND GREATER ON RA. LUNGS CLEAR. DENIES COUGH. PATIENT IN SR WITH OCCASIONAL PVCS. HR 70S TO 80S. SBP 90S TO 1-TEENS. PATIENT RECEIVING FLUIDS AND SCHEDULED MIDODRINE. COLOSTOMY TO LLQ DRAINING BROWN, LIQUID STOOL. NEPHROSTOMY DRAINING VERY CLOUDY, ANGUIANO/ GREEN URINE. SKIN PALE AND COOL. SOFT BULGE NOTED TO NEPHROSTOMY INSERTION SITE; PATIENT STATES IT IS TENDER. PRESSURE ULCER TO COCCYX. HEPARIN INFUSING AT 12 UNITS/ KG/ HOUR, NS AT 100 MLS/ HOUR, SODUIM BICARB AT 100 MLS/ HOUR, NS TKO. AND SON AT BEDSIDE. BED LOW, CALL LIGHT IN REACH. WILL CONTINUE TO MONITOR PATIENT FREQUENTLY THROUGHOUT SHIFT.
[2022-04-01 14:50] LABS: Bun/Creatinine Ratio 17.2 (12.0-20.0); Calcium, Blood 6.7 mg/dL (8.5-10.1); Creatinine, Blood 3.79 mg/dL (0.40-1.00); Magnesium, Blood 2.1 mg/dL (1.6-2.4); Potassium, Blood 2.9 mmol/L (3.5-5.5)
--- NOTE | 2022-04-01 16:15 | NUR ---
DR. GONZALES INFORMED THAT PATIENT'S MAPS HAVE BEEN IN THE 50S. INFORMED THAT DIASTOLIC BPS HAVE BEEN 30S TO 40S. INFORMED THAT PATIENT IS ON 5 MG MIDODRINE. STATED TO CONSULT HEAD ANIMAL KEEPER.
--- NOTE | 2022-04-01 18:19 | NUR ---
UPDATED DR. STROUD ON PATIENT. INFORMED THAT MAP IMPROVED AFTER ALBUMIN STARTED BACK THAT IT IS BACK INTO THE 50S. ORDER FOR BOLUS RECEIVED.
--- NOTE | 2022-04-01 18:24 | NUR ---
SHIFT SUMMARY PATIENT REMAINED A AND O X 4, AFEBRILE. PATIENT STARTED ON ASPERCREME AND LIDOCAINE FOR PAIN TO LOWER BACK AND L BOTTOM. PRN TYLENOL ALSO ORDERED. PATIENT REMAINED ON RA. PATIENT REMAINED IN SR, HR 60S TO 80S. MAPS 50S TO 60S. PATIENT ON SCHEDULED MIDODRINE. PATIENT GIVEN 50 GM ALBUMIN. 1 L NS BOLUS ALSO ORDERED. DR. STROUD CONSULTED FOR HYPOTENSION. COLOSTOMY REMAINS DRAINING BROWN, LIQUID STOOL. 250 MLS OUT FROM NEPHRECTOMY; URINE REMAINED COLOR OF APPLESAUCE AND VERY CLOUDY. NO CHANGES TO SKIN NOTED. PATIENT REPOSITIONED Q2H. HEPARIN REMAINS AT 12 UNITS/ KG/ HOUR, NS AT 100 MLS/ HOUR, SODIUM BICARB AT 100 MLS/ HOUR. ECHO PERFORMED THIS SHIFT. 2G MAG GIVEN THIS SHIFT. TOTAL OF 60 MEQ KCL GIVEN THIS SHIFT. FAMILY AT BEDSIDE. BED LOW, CALL LIGHT IN REACH. REPORTED OFF TO ASSUMING NURSE.
[2022-04-01 20:28] LABS: Albumin, Blood 2.7 g/dL (3.4-5.0); Anion Gap 9 mmol/L (6-16); Blood Urea Nitrogen 59 mg/dL (8-24); Bun/Creatinine Ratio 16.9 (12.0-20.0); CO2, Blood 22 mmol/L (21-32); Calcium, Blood 6.2 mg/dL (8.5-10.1); Chloride, Blood 108 mmol/L (98-108); Creatinine, Blood 3.49 mg/dL (0.40-1.00); Glomerular Filtration Rate 13 (60-); Glucose, Blood 120 mg/dL (70-99); Potassium, Blood 3.2 mmol/L (3.5-5.5); Sodium, Blood 139 mmol/L (136-145)
--- NOTE | 2022-04-01 21:41 | NUR ---
ASSUMED CARE AT 1900 PATIENT IS ALERT AND ORIENTED X4. 02 SATS 98% ON 2L VIA NC. LS CLEAR T/O, PATIENT DENIES SOB. HR SR 60s WITH PVCs. BP HYPOTENSIVE, PATIENT RECIEVED 1L FLUID BOLUS AND ALBUMIN, WELL ASS SCHEDULED MIDODRINE. CENTRAL LINE PLACED FOR BETTER ACCESS TO INFUSE ALL MEDICATIONS NEEDED. X-RAY DONE AND DR. LR CONFIRMED PLACEMENT. MAP REMAINS IN THE 50s. LEFT COLOSTOMY WITH LIQUID BROWN/GREEN OUTPUT, DAUGHTER TO BRING MORE OSTOMY BAGS TOMORROW. LEFT NEPHROSTOMY HAS CLOUDY DRAINING FROM IT WELL REDNESS AND DRAINAGE FROM THE ACCESS SITE. CALLED DR. BRYANT WITH [facility]. DAUGHTER AT BEDSIDE AT START OF SHIFT. SEE SHIFT ASSESSMNET FOR MORE INFORMATION.
[2022-04-02 03:40] LABS: BASOPHILS ABSOLUTE AUTO 0.02 K/mm3 (0.00-0.23); BASOPHILS PERCENT AUTO 0 % (0-2); EOSINOPHILS ABSOLUTE AUTO 0.05 K/mm3 (0.00-0.68); EOSINOPHILS PERCENT AUTO 1 % (0-6); IMMATURE GRAN ABSOLUTE AUTO 0.22 K/mm3 (0.00-0.10); IMMATURE GRAN PERCENT AUTO 3 % (0-1); LYMPHOCYTES ABSOLUTE AUTO 0.77 K/mm3 (0.84-5.20); LYMPHOCYTES PERCENT AUTO 9 % (21-46); MONOCYTES ABSOLUTE AUTO 1.09 K/mm3 (0.16-1.47); MONOCYTES PERCENT AUTO 13 % (4-13); Mean Corpuscular HGB 23.8 pg (26.0-34.0); Mean Corpuscular HGB Conc 31.3 g/dL (31.5-36.5); Mean Corpuscular Volume 76 fL (80-100); Mean Platelet Volume 9.2 fL (9.1-12.4); NEUTROPHILS ABSOLUTE AUTO 6.57 K/mm3 (1.96-9.15); NEUTROPHILS PERCENT AUTO 75 % (41-73); NRBC Auto 1.1 /100 WBC (0.0-0.2); Platelet Count 445 K/mm3 (150-400); RDW Coefficient Variation 20.4 % (11.7-14.2); RDW Standard Deviation 54.9 fL (35.1-46.3); White Blood Cell Count 8.72 K/mm3 (4.00-11.30)
[2022-04-02 04:05] LABS: Albumin, Blood 2.7 g/dL (3.4-5.0); Anion Gap 8 mmol/L (6-16); Blood Urea Nitrogen 50 mg/dL (8-24); Bun/Creatinine Ratio 16.1 (12.0-20.0); CO2, Blood 25 mmol/L (21-32); Calcium, Blood 5.9 mg/dL (8.5-10.1); Chloride, Blood 107 mmol/L (98-108); Glomerular Filtration Rate 15 (60-); Glucose, Blood 137 mg/dL (70-99); Magnesium, Blood 1.6 mg/dL (1.6-2.4); Sodium, Blood 140 mmol/L (136-145)
--- NOTE | 2022-04-02 06:12 | NUR ---
SHIFT SUMMARY PATIENT IS ALERT AND ORIENTED X4. 02 SATS 93% ON RA, DENIES SOB. HR SB-SR 50s-60s. BP HYPOTENSIVE, ON LEVOPHED. STOPPED HEPARIN AT 0350 DUE TO HGB AND HCT BEING CRITICALLY LOW. CALL DR. BRYANT, PATIENT RECIEVING BLOOD NOW, REPLACED CALCIUM, CHANGED FLUIDS, AND REPLACING POTASSIUM. CLOUDY/WHITE URINE OUTPUT. MINIMAL OUTPUT IN NEPHROSTOMY. 200 MLS OUT OF COLOSTOMY. PATIENT REFUSING REPOSITIONING AT TIMES, STATES LAYING ON HER BACK IS THE LEAST PAINFUL.
--- NOTE | 2022-04-02 08:26 | NUR ---
AM NOTE... ASSUMED CARE OF PT AT 0700. THE PT IS A&Ox4 WITH SOME FORGETFULLNESS. SHE IS ON LEVOPHED GTT AT 2MCG TO KEEP MAPS >60. SHE HAS 1 UNIT OF PRBCs RUNNING PER ORDERS. THE PT IS IN SR IN THE 80'S, NO EDEMA NOTED ON THIS ASSESSMENT. L/S CLEAR T/O DIM IN THE BASES ON RA WITH O2 SATS >90%. BT PRESENT AND HYPERACTIVE, COLOSTOMY BAG HAS LIQUID BROWN STOOLS NOTED. THE PT'S LEFT NEPHROSTOMY BAG HAS A SMALL AMOUNT OF YELLOW/MILKY URINE WITH SEDIMENT NOTED. THE PT IS C/O OF LEFT FLANK PAIN AND PAIN TO HER COCCXY. AT THE BEDSIDE TO ASSESS THE PT THIS AM, NEW ORDERS FOR STOOL GUIACS AND PAIN MEDICATIONS. WILL CONTINUE TO MONITOR.
[2022-04-02 09:29] LABS: Hematocrit 22.6 % (33.0-51.0); Hemoglobin 7.2 g/dL (11.5-16.0)
[2022-04-02 13:11] LABS: Hematocrit 22.3 % (33.0-51.0); Hemoglobin 7.1 g/dL (11.5-16.0)
[2022-04-02 13:21] LABS: Albumin, Blood 2.6 g/dL (3.4-5.0); Anion Gap 7 mmol/L (6-16); Blood Urea Nitrogen 45 mg/dL (8-24); CO2, Blood 24 mmol/L (21-32); Calcium, Blood 6.3 mg/dL (8.5-10.1); Chloride, Blood 112 mmol/L (98-108); Creatinine, Blood 3.01 mg/dL (0.40-1.00); Glomerular Filtration Rate 15 (60-); Glucose, Blood 101 mg/dL (70-99); Phosphorus, Blood 2.8 mg/dL (2.5-4.9); Potassium, Blood 3.9 mmol/L (3.5-5.5); Sodium, Blood 143 mmol/L (136-145)
[2022-04-02 13:49] LABS: Stool Occult Blood Guaiac 1 Neg (Neg)
--- NOTE | 2022-04-02 16:37 | NUR ---
PT UPDATE.... APROX 1430 THE PT HAD AN EPISODE OF N/V. THE PROVIDER WAS CALLED AND AN ORDER FOR IV PHENERGAN WAS GIVEN. AT 1620 THE PT HAD TURNED HER CALL LIGHT ON ASKING FOR HELP TO REMOVE HER RIGHT IJ CENTRAL LINE. SARINA MCGINNIS WENT INTO THE ROOM AND FOUND THE PT HAD TAKEN THE DRESSING OFF OF THE CENTRAL LINE AND WAS ATTEMPTING TO PULL IT OUT. THE PT WAS CONFUSED STATING THAT SHE WAS TOLD "BY SOMEONE" THAT IT COULD BE REMOVED. THE PT HAD ALSO PULLED HER TELE LEADS OFF. THIS RN WENT INTO THE ROOM TO ASSIST, THE PT WAS ASKED IF SHE KNEW WHERE SHE WAS AT AND THE PT REPLIED "THIS IS A SERIOUS SITUATION AND I'M TIRED OF STUPID QUESTIONS FROM YOU!" WHEN THIS RN REPLIED THAT YES INDEED THIS WAS A SERIOUS SITUATION AND TO PLEASE ANSWER THE QUESTION THE PT STATED "I'M IN [facility], THERE YOU HAPPY NOW?!" IS WAS AT THIS TIME THAT THIS RN NOTICED THE PT'S ATTENDS WERE VERY WET WITH A LARGE AMOUNT OF URINE AND BROWN FLECKS THAT LOOKED LIKE STOOL. WHEN THE PT WAS ASKED IF SHE STILL HAD STOOL COMING FROM HER RECTUM SINCE HER COLOSTOMY SHE STATED "I GUESS SO." DURING THIS TIME IT WAS ALSO NOTED THE DRESSING OVER THE PT'S LEFT NEPHROSTOMY WAS SATURATED WITH PURULENT LIGHT YELLOW URINE. THIS DRESSING WAS CHANGED, THE AREA WAS CLEANED AND A NEW DRESSING WAS PLACED. WILL CONTINUE TO MONITOR.
[2022-04-02 16:42] LABS: Hematocrit 22.8 % (33.0-51.0); Hemoglobin 7.4 g/dL (11.5-16.0)
--- NOTE | 2022-04-02 17:15 | NUR ---
PT TRANSFER TO PCU.... PT IS GOING TO U RM 4. REPORT GIVEN TO ADJUNCT LATIN PROFESSOR AND HER WAS NOTIFIED. ALL OF HER BELONGINGS LILLIANA PACKED AND SENT WITH THE PT.
--- NOTE | 2022-04-02 18:46 | NUR ---
SHIFT SUMMARY PT TRANSFERRED TO PCU 4 FROM ICU 10 @ APPROX 1730. PT A/O X4, BUT FORGETFUL. PT SR IN THE 60'S ON TELE. PT ON RA, O2 SAT >92%. PT COOPERATIVE AND PLEASANT WITH CARE. WILL CONTINUE TO MONITOR AND REPORT TO DETECTOR CAR OPERATOR RN.
[2022-04-03 05:09] LABS: Hematocrit 22.6 % (33.0-51.0)
[2022-04-03 06:38] LABS: Albumin, Blood 2.4 g/dL (3.4-5.0); Anion Gap 10 mmol/L (6-16); Blood Urea Nitrogen 41 mg/dL (8-24); Bun/Creatinine Ratio 13.4 (12.0-20.0); CO2, Blood 20 mmol/L (21-32); Calcium, Blood 6.4 mg/dL (8.5-10.1); Chloride, Blood 114 mmol/L (98-108); Creatinine, Blood 3.06 mg/dL (0.40-1.00); Glomerular Filtration Rate 15 (60-); Glucose, Blood 84 mg/dL (70-99); Magnesium, Blood 1.4 mg/dL (1.6-2.4); Phosphorus, Blood 3.1 mg/dL (2.5-4.9); Potassium, Blood 3.4 mmol/L (3.5-5.5); Sodium, Blood 144 mmol/L (136-145)
--- NOTE | 2022-04-03 06:55 | NUR ---
SHIFT SUMMARY PT REMAINS A&O X3, PLEASANT AND COOPERATIVE WITH CARE. VSS; REMAINS ON RA, SPO2 >96%. PT REPORTS PAIN IN BACK AND FLANK AREA; 8-9/10. MEDICATED PER EMAR AND SEEMED TO PROVIDE RELIEF. PT WAS ABLE TO REST ON AND OFF. NEPHROSTOMY IN PLACE, ALTHOUGH IT IS LEAKING SOME; DRAINING YELLOW/GREEN CLOUDY URINE. 50 MLS OUT INTO BAG. COLOSTOMY IN PLACE. NS INFUSING PER EMAR. NO ACUTE CHANGES THROUGHOUT SHIFT. CALL LIGHT IN REACH AND PT USES APPROPRIATELY.
--- NOTE | 2022-04-03 15:17 | NUR ---
Palliative care consult: Pt's son at bedside requests advanced directive for patient. He reports they began filling one out "sometime ago" but have since lost it. They are in agreement that pt would NOT want correction life support. Pt is alert and oriented. She would like to remain a full code for the time being, stating she would want to give her children a chance to make it to her bedside. Will assist as needed with filling out AD.
--- NOTE | 2022-04-03 18:28 | NUR ---
PT SUMMARY: PT C/O LEFT SIDE FLANK PAIN FOR THE SHIFT WORSENS WHEN SHIFTING POSITION OR PRESSURE MEDICATED WITH NORCO ONCE FOR PAIN LIDOCAINE PATCH IN PLACE, LEFT NEPHROSTOMY TUBE REMAINED IN PLACE DRESSING WAS REPLACED TODAY, DRAINED 50MLS OF CLOUDY URINE, STILL PLANNING ON FIXING NEPHROSTOMY TUBE TOMORROW CALLED DR BAGLEY OFFICE TO VERIFY CONSULT. COLOSTOMY ON LLQ INTACT WELL HAD SOME BROWN LIQUID STOOLS, PT WAS ABLE TO GET UP TO THE CHAIR TODAY WITH OT AND USED THE COMMODE ONCE VIA STAND AND PIVOT TRANSFER. SON AND CAME IN TO VISIT TODAY WAS ALSO GIVEN UPDATE REGARDING PT'S PLAN OF CARE. NO OTHER ISSUES AT THIS TIME, PT TOLERATING FOOD AND DIET, ABLE TO MOVE INDEPENDENTLY IN BED NEEDS ASSISTANCE WHEN BOOSTING UP IN BED, EGGCRATE PLACED ON MATTRESS TO HELP WITH COCCYX PRESSURE. NO OTHER ISSUES ENCOUNTERED AT THIS TIME, PT ABLE TO MAKE NEEDS KNOWN, CALL LIGHTS WITHIN REACH. WILL REPORT TO ONCOMING SHIFT
[2022-04-04 04:27] LABS: Hemoglobin 7.2 g/dL (11.5-16.0)
[2022-04-04 04:43] LABS: Albumin, Blood 2.2 g/dL (3.4-5.0); Anion Gap 7 mmol/L (6-16); Blood Urea Nitrogen 38 mg/dL (8-24); Bun/Creatinine Ratio 12.3 (12.0-20.0); CO2, Blood 22 mmol/L (21-32); Calcium, Blood 6.8 mg/dL (8.5-10.1); Chloride, Blood 117 mmol/L (98-108); Glomerular Filtration Rate 15 (60-); Glucose, Blood 84 mg/dL (70-99); Magnesium, Blood 1.7 mg/dL (1.6-2.4); Phosphorus, Blood 3.1 mg/dL (2.5-4.9); Potassium, Blood 3.5 mmol/L (3.5-5.5); Sodium, Blood 146 mmol/L (136-145)
--- NOTE | 2022-04-04 06:28 | NUR ---
SHIFT SUMMARY PT REMAINS ALERT AND ORIENTED, BUT IS FORGETFUL AT TIMES; OFTEN ASKING THE SAME QUESTIONS. REORIENTED EASILY. COOPERATIVE WITH CARE. AT START OF SHIFT PT IN SEVERE PAIN, PT CRYING RATING PAIN 10/10. MEDICATED W/25 MCG OF FENTANYL PER EMAR. NORCO ALSO ADMINSTERED. THIS SEEMED TO HELP RELIEVE PAIN. PT THEN ABLE TO REST MOST OF THE SHIFT. COMPLAINING OF NO PAIN UNTIL AROUND 0545. VSS THROUGHOUT SHIFT. NO SOB, CP OR PRESSURE. PT UP TO BSC X1 W/ASSISTANCE. PT TOLERATED OKAY. NEPHROSTOMY IN PLACE BUT LEAKING SOME, 0 ML OF DRAINAGE THIS SHIFT. COLOSTOMY IN PLACE; LOOSE, WATERY STOOLS. CALL LIGHT IN REACH AND PT USING APPROPRIATELY. PT REMINDED ABOUT Q2 TURNS AND EDUCATION PROVIDED ON IMPORTANCE AND PRESSURE ULCER PREVENTION. PT TURNING INDEPENDENTLY MOST OF THE TIME BUT ALSO NEEDS REMINDERS AND PROMPTING.
--- NOTE | 2022-04-04 06:32 | NUR ---
UPDATE DR. BRYANT IN TO SEE PT. MORNING LABS SHOWED ELEVATED NA; NEW ORDERS FOR D5 1/2 NS AT 50 MLS.
--- NOTE | 2022-04-04 07:49 | NUR ---
ASSUMED CARE OF PT- BEDSIDE REPORT COMPLETED WITH NIGHT RN. PT IVF CHANGED AT AHIFT CHANGE TO D5 1/2NS AT 50ML/HR. PT ALERT AND ORIENTED BUT FORGETFUL, PER REPORT PT FORGETS ORDER EVENTS HAPPENED IN. PT ANSWERS QUESTIONS APPROPRIATELY. PT GLENNY PAIN, MEDICATED BY NIGHT RN PRIOR TO SHIFT CHANGE. PT AGREES PAIN IS WELL MANAGED. PLAN FOR IR PROCEDURE TODAY, PT HAS BEEN NPO SINCE MIDNIGHT. NO CURRENT S&S OF DISTRESS NOTED AT THE TIME OF SHIFT CHANGE AND ASSESSMENT. PER REPORT PT HAS HAD NO OUTPUT IN NEPHROSTOMY FOR NIGHT RN. THIS MORNING APPROXIMATELY 100ML OF YELLOW OUTPUT WAS NOTED WITH HEAVY WHITE SEDIMENT. WILL CTM.
--- NOTE | 2022-04-04 16:46 | NUR ---
RECIEVED A CALL FROM DIRECTOR OF STRATEGY & MOBILE RN- PT IS NOT GOING TO GO FOR HER PROCEDURE TODAY PLANNED. NEW PLAN IS FOR PT TO GO FOR PROCEDURE TOMORROW. PER RN REPORT CAN BE FED DINNER THEN NPO AT MIDNIGHT FOR PROCEDURE TOMORROW. PT UPDATED WITH THE NEW INFORMATION, AND IS AWARE HER PROCEDURE WILL NOT BE UNTIL TOMOROW. WILL FEED THE PT DINNER AND MAKE HER NPO AT MIDNIGHT PER MD ORDER.
--- NOTE | 2022-04-04 16:56 | NUR ---
SHIFT SUMMARY- PT ALERT AND ORIENTED TO SELF AND FAMILY, SHE IS FORGETFUL. NEPHROSTOMY HAS ONLY HAD 150ML OF OUTPUT THIS SHIFT AND 0 ML OUTPUT THE PRIOR SHIFT. PT HAS HAD URINE OUTPUT THOUGH. PT HAS D5 WITH 1/2 NS RUNNING AT 50ML/HR CURRENTLY. PLAN WAS FOR HER TO HAVE HER NEPHROSTOMY REPLACED TODAY, HOWEVER THEY CALLED A TTHE END OF SHIFT TO SAY THE NEW PLAN IS TO TAKE HER TOMORROW FOR THE PROCEDURE. THE PT IS AWARE. PT WILL GET TO EAT DINNER AND THEN WILL BE NPO AFTER MIDNIGHT FOR THE PROCEDURE THAT IS PLANNED FOR TOMORROW. PT IS A 2PA TO THE BSC WHEN NEEDED FOR URINE OUTPUT. PT HAS AN OSTOMY APPLIANCE THAT HAS SOFT BROWN OUTPUT. APPLIANCE IS C/D/I. SHRADDHA BOTTLE IN THE ROOM TO RINSE THE BAG WHEN IT IS EMPTIED.
[2022-04-05 05:36] LABS: BASOPHILS ABSOLUTE AUTO 0.03 K/mm3 (0.00-0.23); BASOPHILS PERCENT AUTO 0 % (0-2); EOSINOPHILS ABSOLUTE AUTO 0.17 K/mm3 (0.00-0.68); EOSINOPHILS PERCENT AUTO 2 % (0-6); Hematocrit 27.6 % (33.0-51.0); Hemoglobin 8.1 g/dL (11.5-16.0); IMMATURE GRAN ABSOLUTE AUTO 0.19 K/mm3 (0.00-0.10); IMMATURE GRAN PERCENT AUTO 3 % (0-1); LYMPHOCYTES ABSOLUTE AUTO 1.06 K/mm3 (0.84-5.20); LYMPHOCYTES PERCENT AUTO 15 % (21-46); MONOCYTES ABSOLUTE AUTO 0.74 K/mm3 (0.16-1.47); MONOCYTES PERCENT AUTO 10 % (4-13); Mean Corpuscular HGB 24.5 pg (26.0-34.0); Mean Corpuscular HGB Conc 29.3 g/dL (31.5-36.5); Mean Corpuscular Volume 83 fL (80-100); NEUTROPHILS ABSOLUTE AUTO 5.09 K/mm3 (1.96-9.15); NEUTROPHILS PERCENT AUTO 70 % (41-73); NRBC ABSOLUTE 0.04 K/mm3 (0.00-0.02); NRBC Auto 0.5 /100 WBC (0.0-0.2); Platelet Count 269 K/mm3 (150-400); RDW Coefficient Variation 21.9 % (11.7-14.2); RDW Standard Deviation 62.5 fL (35.1-46.3); Red Blood Cell Count 3.31 M/mm3 (3.80-5.20); White Blood Cell Count 7.28 K/mm3 (4.00-11.30)
--- NOTE | 2022-04-05 05:49 | NUR ---
SHIFT SUMMARY ASSUMED CARE OF PT AT 1900. PT IS A/OX4. HEART SOUNDS REGULAR. LUNG SOUNDS CLEAR. PT WAS CONTIENT TO BSC WITH 1P SBA ASSIST. PT FELT WEAKER THAN NORMAL. URINE IS VERY CLOUDY WITH SEDIMENT. NEPHROSTOMY BAG HAD NO DRAINAGE. PT OSTOMY HAD OUTPUT. DRESSING ON COCCYX CHANGED. WOUND BLANCHABLE. PT NPO SINCE MIDNIGHT.
[2022-04-05 05:59] LABS: Bun/Creatinine Ratio 11.5 (12.0-20.0); Calcium, Blood 6.9 mg/dL (8.5-10.1); Creatinine, Blood 2.79 mg/dL (0.40-1.00); Potassium, Blood 3.5 mmol/L (3.5-5.5)
--- NOTE | 2022-04-05 07:24 | NUR ---
Bedside report from RAHEL Albert. Pt appears to be sleeping. Soft room lights are on.
--- NOTE | 2022-04-05 08:26 | NUR ---
0754 Pt was taken to [facility] for intervention with Dr. Bell.
--- NOTE | 2022-04-05 08:44 | NUR ---
Pt returned from [facility]. She is awake, alert and oriented. Nausea reported by Rn on arrival is now abating, according to the pt. She states that she is "starving" and requesting breakfast. Site noted on the left flank is bandaged, clean dry and intact and draining clear yellow urine.
--- NOTE | 2022-04-05 09:09 | NUR ---
Declined antiemetic medication; eating breakfast with good appetite.
--- NOTE | 2022-04-05 11:18 | NUR ---
Dressing of nephrostomy remains clean, dry and intact. Draining actively clear yellow urine. Requesting pain medication. Also states that she is itchy a bit around the adhesive dressing. No redness, no rash, no urticaria.
--- NOTE | 2022-04-05 11:40 | NUR ---
Spiritual care visit conducted. Patient is sitting up in bed and alert. Patient tells me that she has had some sort of intervention performed by Dr. Bell but did not go into details but stated that she has been in pain for quite some time and she is looking forward to having relief form that pain. She talks about her family, her spouse (and his [employer] career) and about their RV (and the plans they had to travel). Family entered patient's room and so I allow them to visit. I will continue to remain available to patient and family.
[2022-04-05] MEDS ORDERED: ACET325 PO (13:27)
[2022-04-05] MEDS ORDERED: Norco 5-325 Ta1 EACH PO (13:28)
--- NOTE | 2022-04-05 13:29 | NUR ---
Pt declined to work with occupational therapy because she was "not ready to go home yet". Her daughter, who is transporting the patient from the hospital, went back home to [place] to get things out of the pathway in the house from the front door to the pt's chair.
[2022-04-05] MEDS ORDERED: LEVFLO500 PO (13:30)
[2022-04-05] MEDS ORDERED: MIDODRINE HCL10 M1 PO (13:31)
[2022-04-05] MEDS ORDERED: LIDOCAINE1 EAC1 TOP (13:32)
[2022-04-05] MEDS ORDERED: PANT40 PO (13:37)
[2022-04-05] MEDS ORDERED: VISBIOME 112.51 EACH PO (13:38)
--- NOTE | 2022-04-05 16:09 | NUR ---
Discharge instructions were reviewed in detail with the patient and her at bedside. Questions were answered, printed educational material was reviewed and provided for the patient. Powerglide midline IV removed from the LUE; Nephrostomy site noted clean, dry and intact. Draining clear yellow urine. Leg strap was applied on the drainage bag and attached to her left thigh. Pt was assisted to get dressed. She is waiting for her daughter to return in order to be discharged home.
== END 2022-04-05 16:40 | disposition home or self-care (01) | DRG 699 ==
LOC: MEDS 16:21 → ICUW 04-01 10:10 → PCU 04-01 12:32 → ICUW 04-02 12:46 → PCU 04-02 17:27
PROVIDERS: Internal Medicine; Internal Medicine Nephrology; ADMIT Internal Medicine
PROC: 3E033XZ Introduction of Vasopressor into Peripheral Vein, Percutaneous Approach (ICD-10-PCS; 2022-04-01)
PROC: 30233N1 Transfusion of Nonautologous Red Blood Cells into Peripheral Vein, Percutaneous Approach (ICD-10-PCS; principal; 2022-04-02)
PROC: 0T25X0Z Change Drainage Device in Kidney, External Approach (ICD-10-PCS; 2022-04-05)
DX: T83.512A Infection and inflammatory reaction due to nephrostomy catheter, initial encounter (principal); E87.0 Hyperosmolality and hypernatremia; E87.20 Acidosis, unspecified; N13.8 Other obstructive and reflux uropathy; N17.9 Acute kidney failure, unspecified; N25.81 Secondary hyperparathyroidism of renal origin; N18.5 Chronic kidney disease, stage 5; D63.1 Anemia in chronic kidney disease; I95.9 Hypotension, unspecified; E83.42 Hypomagnesemia; E83.39 Other disorders of phosphorus metabolism; E87.6 Hypokalemia; L89.152 Pressure ulcer of sacral region, stage 2; B96.1 Klebsiella pneumoniae [K. pneumoniae] as the cause of diseases classified elsewhere; B95.7 Other staphylococcus as the cause of diseases classified elsewhere; R51.9 Headache, unspecified; E88.09 Other disorders of plasma-protein metabolism, not elsewhere classified; E83.51 Hypocalcemia; Z85.528 Personal history of other malignant neoplasm of kidney; Z90.5 Acquired absence of kidney; Z79.01 Long term (current) use of anticoagulants; Z79.899 Other long term (current) drug therapy
CPT/HCPCS: 36415; 36430; 36556; 50435; 71045; 74176; 80048; 80053; 80069; 81001; 82272; 82330; 82728; 83540; 83550; 83735; 84100; 85014; 85018; 85025; 85610; 85730; 86850; 86900; 86901; 86923; 87040; 87077; 87086; 87186; 93306; 96365; 96366; 96372; 96375; 96376; 97110; 97161; 97165; 97530; 97535; 99152; A9270; C1729; C1751; C1769; G0378; J0610; J0881; J1644; J1956; J2250; J2405; J2550; J3010; J3475; J3480; J7030; J7040; J7042; J7050; J7060; J7070; P9016; P9047; Q9967

== ENCOUNTER 2022-05-04 10:56 | Inpatient (IN) | payer MEDICARE, OTHER ==
[~2022-05-04] VITALS: Ht 170.2 cm; Wt 36.2 kg
[~2022-05-04 10:56] MED LIST changes: +ACET325 PO; +LEVFLO500 PO; +LIDOCAINE1 EAC1 TOP; +MIDODRINE HCL10 M1 PO; +Norco 5-325 Ta1 EACH PO; +PANT40 PO
[2022-05-04 12:02] LABS: BASOPHILS ABSOLUTE AUTO 0.02 K/mm3 (0.00-0.23); BASOPHILS PERCENT AUTO 0 % (0-2); EOSINOPHILS ABSOLUTE AUTO 0.09 K/mm3 (0.00-0.68); EOSINOPHILS PERCENT AUTO 1 % (0-6); Hematocrit 26.2 % (33.0-51.0); Hemoglobin 7.7 g/dL (11.5-16.0); IMMATURE GRAN ABSOLUTE AUTO 0.04 K/mm3 (0.00-0.10); IMMATURE GRAN PERCENT AUTO 1 % (0-1); LYMPHOCYTES ABSOLUTE AUTO 0.42 K/mm3 (0.84-5.20); LYMPHOCYTES PERCENT AUTO 6 % (21-46); MONOCYTES ABSOLUTE AUTO 0.39 K/mm3 (0.16-1.47); MONOCYTES PERCENT AUTO 5 % (4-13); Mean Corpuscular HGB Conc 29.4 g/dL (31.5-36.5); Mean Corpuscular Volume 78 fL (80-100); Mean Platelet Volume 8.9 fL (9.1-12.4); NEUTROPHILS ABSOLUTE AUTO 6.58 K/mm3 (1.96-9.15); NEUTROPHILS PERCENT AUTO 87 % (41-73); NRBC ABSOLUTE 0.03 K/mm3 (0.00-0.02); NRBC Auto 0.4 /100 WBC (0.0-0.2); Platelet Count 399 K/mm3 (150-400); RDW Coefficient Variation 18.3 % (11.7-14.2); RDW Standard Deviation 52.3 fL (35.1-46.3); Red Blood Cell Count 3.35 M/mm3 (3.80-5.20); White Blood Cell Count 7.54 K/mm3 (4.00-11.30)
[2022-05-04 12:41] LABS: Albumin, Blood 2.4 g/dL (3.4-5.0); Albumin/Globulin Ratio 0.6 (0.8-1.8); Bilirubin, Total 0.2 mg/dL (0.1-1.0); Bun/Creatinine Ratio 16.1 (12.0-20.0); Calcium, Blood 8.9 mg/dL (8.5-10.1); Creatinine, Blood 5.28 mg/dL (0.40-1.00); Globulin, Blood 4.3 g/dL (2.2-4.0); Potassium, Blood 4.4 mmol/L (3.5-5.5); Total Protein, Blood 6.7 g/dL (6.4-8.2)
[2022-05-04 13:06] LABS: Source, Urine Nephrostomy
[2022-05-04 13:12] LABS: Appearance, Urine Turbid (Clear); Bilirubin, Urine Neg (Neg); Blood, Urine 5+ (Neg); Color, Urine Red (P-Yellow); Glucose Qualitative, Urine Neg (Neg); Ketones, Urine Neg (Neg); Leukocyte Esterase, Urine 3+ (Neg); Nitrite, Urine Neg (Neg); Protein, Urine 4+ (Neg); Specific Gravity, Urine 1.015 (1.003-1.022); Urobilinogen, Urine NORM (Normal)
[2022-05-04 13:38] LABS: Bacteria Many /hpf; Granular Casts 0-2 /lpf (0); Hyaline Casts 0-2 /lpf (0-2); Red Blood Cells, Urine TNTC /hpf (0-2); Squamous Epithelial Cells Mod /hpf (Few); Transitional Epithelial Cells Rare /hpf (0-Rare); White Blood Cells, Urine TNTC /hpf (0-5)
[2022-05-04 15:13] LABS: Base Excess Venous -16.9 mmol/L; Bicarbonate Venous 12.3 mmol/L (24.0-30.0); PCO2 Venous 34.4 mmHg (38-42); pH Blood Venous 7.15 (7.34-7.37)
[2022-05-04] MEDS ORDERED: GABA300 PO ×2 (16:10→16:14)
[2022-05-04] MEDS ORDERED: TRAM50 (16:11)
--- NOTE | 2022-05-04 18:39 | NUR ---
ER ADMIT- FULL CODE-81 YEAR OLD FEMALE PATIENT CAME UP FROM ER THIS LATE AFTERNOON WITH INCREASED CONFUSION. LABS ARE ABNORMAL, POSSIBLY INDICATING INFECTION. SOURCE SUSPECTED IS NEPHROSTOMY SITE WHICH WAS REPLACED SUNDAY. PATEINT HAS COLOSTOMY THAT HAS BEEN IN PLACE FOR 30 YEARS. PATIENTS RENAL FUNCTION IS FAILING. GFR 8. SODUIM BICARB GIVEN, AND A BAG CURRENTLY HANGING AT THIS TIME. PATIENT HAS A WOUND ON BACK SIDE THAT HAS DRESSING AND WAS BEING CARED FOR AT HOME. WOUND CARE IS NEEDED TO ADDRESS IT'S CURRENT STATE/RECOMMENDATIONS FOR CARE. PATIENT HAS IV IN RIGHT FA PATENT WITH FLUIDS RUNNING NOW. RESTING IN BED COMFORTABLE. 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 PATIENT IS UNABLE TO FEED SELF AND USING A STRAW IS DIFFICULT PER FAMILY. A LIFT IS NEEDED FOR MOVEMENT.
--- NOTE | 2022-05-05 04:40 | NUR ---
SHIFT SUMMARY 81 YR F ADMITTED ON 05/04/22 FOR ACUTE ON CHRONIC KIDNEY INJURY. FULL CODE. NO ACUTE CHANGES THIS SHIFT. PT HAS SLEPT FOR MOST OF THIS SHIFT BUT DID WAKE UP TO TAKE HER EVENING MEDS. SHE APPEARS TO BE VERY CONFUSED, BUT SHE IS COOPERATIVE. SHE C/O PAIN IN HER HANDS AND WAS GIVEN TYLENOL PER EMAR. SHE WENT BACK TO SLEEP AFTER MEDS AND SLEPT FOR THE REST OF THE SHIFT.
[2022-05-05 06:29] LABS: Hematocrit 23.3 % (33.0-51.0); Hemoglobin 7.1 g/dL (11.5-16.0); Mean Corpuscular HGB 23.3 pg (26.0-34.0); Mean Corpuscular HGB Conc 30.5 g/dL (31.5-36.5); Mean Corpuscular Volume 76 fL (80-100); Mean Platelet Volume 9.2 fL (9.1-12.4); NRBC ABSOLUTE 0.05 K/mm3 (0.00-0.02); NRBC Auto 0.7 /100 WBC (0.0-0.2); Platelet Count 332 K/mm3 (150-400); RDW Coefficient Variation 18.2 % (11.7-14.2); RDW Standard Deviation 50.3 fL (35.1-46.3); Red Blood Cell Count 3.05 M/mm3 (3.80-5.20)
[2022-05-05 06:54] LABS: Albumin, Blood 1.8 g/dL (3.4-5.0); Albumin/Globulin Ratio 0.5 (0.8-1.8); Bilirubin, Total 0.2 mg/dL (0.1-1.0); Bun/Creatinine Ratio 17.3 (12.0-20.0); Calcium, Blood 7.7 mg/dL (8.5-10.1); Creatinine, Blood 4.33 mg/dL (0.40-1.00); Globulin, Blood 3.8 g/dL (2.2-4.0); Magnesium, Blood 1.2 mg/dL (1.6-2.4); Phosphorus, Blood 6.2 mg/dL (2.5-4.9); Potassium, Blood 3.6 mmol/L (3.5-5.5); Total Protein, Blood 5.6 g/dL (6.4-8.2)
--- NOTE | 2022-05-05 16:45 | NUR ---
SHIFT SUMMARY PT AxOx3-4 WITH INTERMITTENT CONFUSION. PT IS PLEASANT AND COOPERATIVE WITH CARE. PT MEDICATED FOR PAIN x1 THIS SHIFT. THE PERIPHERAL IV WAS INFILTRATED THIS AM. FLUIDS AND IV MEDS WERE ON HOLD WHILE STAFF WORKED TO GET IV ACCESS AGAIN. POWERGLIDE WAS PLACED IN [place] THIS AFTERNOON, BUT ONLY WORKED FOR SHORT TIME BEFORE IT BECAME BLOCKED. IV ABX WERE ADMINISTERED PRIOR TO BLOCK. RECREATION MANAGER CURRENTLY WORKING ON RESOLVING. PT HAD FAMILY IN ROOM FOR SUPPORT MOST OF THIS DAY. WOUND CARE PERFORMED AND DRESSING CHANGED ON PRESSURE ULCER TO COCCYX. PT STATES SHE GETS WOUND CARE OUTPATIENT. PHYSICAL THERAPY IN THIS SHIFT. BLOOD PRESSURES LOW THIS SHIFT. PT CURRENTLY RESTING IN BED WITH CALL LIGHT IN REACH. DENIES ANY NEEDS AT THIS TIME.
--- NOTE | 2022-05-05 19:48 | NUR ---
MESSAGE FROM [facility] STATING PATIENT'S SON, MICHELE, WOULD LIKE A CALL BACK. HE IS NOT ON PATIENT'S RELEASE OF INFORMATION BUT WAS ABLE TO SPEAK WITH PATIENT'S DAUGHTER, BREE, WHO STATED IT OKAY TO SPEAK WITH PATIENT. CALLED BACK AT [phone]. SPOKE WITH MICHELE WHO JUST WANTED AN UPDATE. LET HIM KNOW PATIENT PULLED IV OUT, WELL POWERGLIDE, SO WE HAVE BEEN UNABLE TO GET ANTIBIOTICS OR FLUIDS DOWN HER TODAY. PATIENT'S SON STATED, "DO WHAT YOU HAVE TO DO TO GET THE FLUIDS AND ANTIBIOTICS DOWN HER. I'LL CALL MY SISTER AND TALK WITH HER IN THE MORNING."
--- NOTE | 2022-05-06 07:15 | NUR ---
ANIMAL KEEPER SUMMARY: ALERT AND ORIENTED TO SELF, ONLY. WAS UP MAJORITY OF THE NIGHT WITH BOTH AUDITORY AND VISUAL HALLUCINATIONS. SEEING ANIMALS AND FAMILY MEMBERS NI HER ROOM AND PARANOID DELUSIONS, STATING THERE WERE PEOPLE IN HER ROOM TRYIN TO KILL HER. YELLING OUT INTO HALLWAY FOR FAMILY MEMBERS, STATING, "I CAN SEE THEM SITTING RIGHT THERE!" IV ACCESS REESTABLISHED RIGHT FOREARM RUNNING BICARB @ 50mL/hr. ZYPREXA 5MG PO ADMINISTERED LAST NIGHT; PT SLEPT FOR ABOUT TWO HOURS AND WAS UP THE REMAINDER OF THE NIGHT. AT ONE POINT, ATTEMPTED TO SWING CALL LIGHT AT AID. OBSTINENT WITH CARE AND VERY CONDESCENDING AND DISRESPECTFUL WITH STAFF. LEFT NEPHROSTOMY IN PLACE; REQUIRES FREQUENT REMINDERS TO NOT PULL ON LINES. DECLINED LABS THIS AM; BOILERMAKER FITTER WILL TRY AGAIN LATER OR CHANGE OF FACE. COLOSTOMY EMPTED ONCE T/O SHIFT. NO C/O PAIN. REPORT TO ONCOMING RN.
--- NOTE | 2022-05-06 11:07 | NUR ---
POWER GLIDE [address] A POWER GLIDE. LINE DRAWS WELL. OUTSTANDING LABS DRAWN AND SENT TO LAB. PT RESTING QUIETLY. POWER GLIDE WRAPPED IN COBAN. BICARB GTT SWITCHED FROM RIGHT WRIST IV. AT BEDSIDE. CONTINUE POC.
[2022-05-06 11:13] LABS: Hematocrit 20.9 % (33.0-51.0); Hemoglobin 6.3 g/dL (11.5-16.0)
[2022-05-06 11:33] LABS: Albumin, Blood 1.8 g/dL (3.4-5.0); Anion Gap 6 mmol/L (6-16); Blood Urea Nitrogen 66 mg/dL (8-24); Bun/Creatinine Ratio 18.9 (12.0-20.0); CO2, Blood 31 mmol/L (21-32); Calcium, Blood 7.4 mg/dL (8.5-10.1); Chloride, Blood 105 mmol/L (98-108); Glomerular Filtration Rate 13 (60-); Glucose, Blood 100 mg/dL (70-99); Magnesium, Blood 1.5 mg/dL (1.6-2.4); Phosphorus, Blood 3.9 mg/dL (2.5-4.9); Potassium, Blood 3.1 mmol/L (3.5-5.5); Sodium, Blood 142 mmol/L (136-145)
--- NOTE | 2022-05-06 14:24 | NUR ---
NOTE RECEIVED ORDER FOR MULTIPLE IV MEDICATIONS. TALKED WITH DR CARRIZALES ABOUT INFUSION PRIORITY. PT ONLY HAS 1 IV. THE POWER GLIDE TOOK 4 ATTEMPTS. SHE SAID TO HOLD THE BICARB GTT. INFUSE BLOOD. CHECKED WITH PHARMACY AND MAGNESIUM AND BICARB ARE COMPATIBLE AT THE Y SITE. CONTIUE POC.
--- NOTE | 2022-05-06 14:38 | NUR ---
PRBC #1 FIRST UNIT OF PRBC STARTED. AT BEDSIDE. NO S/S OF TRNSFUSION REACTION NOTED. VSS. CONTINUE POC.
--- NOTE | 2022-05-06 15:38 | NUR ---
note Pt family has left for the evening. Prbc infusing. No rash, SOB or itching noted. Lungs cta, RA. DBP 40's. Left ue power glide infusing well. PT has made no attempt to remove it. COntinue POC>
--- NOTE | 2022-05-06 16:04 | NUR ---
Dr Solo Banda here to see pt. HE will call Pt spouce. Continue pOC>
[2022-05-06 22:57] LABS: Magnesium, Blood 2.5 mg/dL (1.6-2.4); Potassium, Blood 3.8 mmol/L (3.5-5.5)
[2022-05-07 04:08] LABS: Hematocrit 31.5 % (33.0-51.0); Hemoglobin 10.2 g/dL (11.5-16.0); Mean Corpuscular HGB 25.4 pg (26.0-34.0); Mean Corpuscular HGB Conc 32.4 g/dL (31.5-36.5); Mean Corpuscular Volume 79 fL (80-100); Platelet Count 328 K/mm3 (150-400); RDW Coefficient Variation 16.6 % (11.7-14.2); RDW Standard Deviation 47.4 fL (35.1-46.3); Red Blood Cell Count 4.01 M/mm3 (3.80-5.20); White Blood Cell Count 8.14 K/mm3 (4.00-11.30)
[2022-05-07 04:29] LABS: Albumin, Blood 1.9 g/dL (3.4-5.0); Anion Gap 4 mmol/L (6-16); Blood Urea Nitrogen 63 mg/dL (8-24); Bun/Creatinine Ratio 19.7 (12.0-20.0); CO2, Blood 31 mmol/L (21-32); Chloride, Blood 106 mmol/L (98-108); Glomerular Filtration Rate 14 (60-); Glucose, Blood 111 mg/dL (70-99); Magnesium, Blood 2.1 mg/dL (1.6-2.4); Phosphorus, Blood 3.8 mg/dL (2.5-4.9); Potassium, Blood 3.8 mmol/L (3.5-5.5); Sodium, Blood 141 mmol/L (136-145)
--- NOTE | 2022-05-07 05:24 | NUR ---
SHIFT SUMMARY: PT IS ALERT, ORIENTED AT TIMES BUT ALSO RATHER CONFUSED AT TIMES. SHE ALSO HAS INTERMITTENT PARANOIA. 2ND UNIT OF RBC'S GIVEN WITHOUT COMPLICATION. DR. BRYANT DC'D BICARB DRIP AND STARTED NS @ 75/HR. NEPHROSTOMY PATENT AND DRAINING YELLOW URINE. PT DENIES PAIN, NAUSEA, VOMITING, AND SOB. PT SLEPT INTERMITTENTLY T/O THE NIGHT. BED IN LOW POSITION, CALL LIGHT WITHIN REACH. WILL CONTINUE TO MONITOR AND REPORT TO DAY NURSE.
--- NOTE | 2022-05-07 09:28 | NUR ---
Dr Solo Banda able to talk to pt . Pt is unsure she wants the EGD. wants pt to decide whether to go forward or not. Sat with pt/spouce as they talked about it. Clarified information and post op care. COntinue POC>
--- NOTE | 2022-05-07 13:12 | NUR ---
EGDDR HALLIE RETURNED WHEN PT DAUGHTER ARRIVED. DISCUSSED THE EGD. PT AND SPOUCE CONSENTED TO EGD. CONTINUE POC.
--- NOTE | 2022-05-07 14:47 | NUR ---
History, Chart, Medications and Allergies reviewed before start of procedure. Patient confirms NPO status and agrees with scheduled surgery. Pre-Op teaching done. Pt verbalizes understanding. PT ARRIVED TO UNIT GURN.
--- NOTE | 2022-05-07 15:03 | NUR ---
05/07/22 1501 Jordin Grimes HISTORY, CHART, MEDICATIONS AND ALLERGIES REVIEWED BEFORE START OF PROCEDURE. PATIENT CONFIRMS NPO STATUS AND AGREES WITH SCHEDULED PROCEDURE. 3-LEAD EKG REVIEWED WITH PHYSICIAN PRIOR TO START OF PROCEDURE. MONITOR INTACT WITH CONTINUOUS PULSE OXIMETRY,CAPNOGRAPHY, 3-LEAD EKG, INTERMITTENT BP. SUPPLEMENTAL O2 TO BE TITRATED THROUGHOUT PROCEDURE TO MAINTAIN O2 SATURATION ABOVE 90%. PATIENT DETERMINED TO BE ASA APPROPRIATE FOR PROPOFOL SEDATION PRIOR TO START OF PROCEDURE BY DR. PENDLETON. Bite Block Placed
--- NOTE | 2022-05-07 15:47 | NUR ---
POST EGD RECOVERY PT ARRIVED VIA GURNEY ACCOMPANIED BY RN. pT ALERT, TALKING NON STOP. fAMILY AT BEDSIDE. PT TRANSFERED TO BED WITH 3 ASSIST AND SLIDER SHEET. BEDSIDE REPORT RECEIVED. VSS. IV FLUIDS RESTARTED. OSTOMY EMPTIED FOR 200 ML OF BROWN, LIQUID. NEPHROSTOMY BAG EMPTIED FOR 200ML. PT AWAKE, TALKING WITH FAMILY. DENIED DISCOMFORT. CONTINUE POC.
--- NOTE | 2022-05-07 18:35 | NUR ---
NOTE PT EATING DINNER. GOOD APPETITE. VSS POST OP. FAMILY HAS LEFT FOR THE EVENING. IVF INFUSING AT 75 ML/HR PER DR BRYANT DIRECTION. NEPHROSTOMY DRAINING WELL. RIGHT LOWER BACK WOUND COVERED WITH DRESSING INTACT. COLOSTOMY DRAINED TWICE. LARGE AMOUNT OF FLATUS. WAFER INTACT. LEFT UE POWER GLIDE INTACT. INFUSING WELL. DRESSING WITH BLOODY DRAINAGE NOTED ON CMG THIS EVEING. CONTINUE POC.
[2022-05-08 04:27] LABS: Hematocrit 30.4 % (33.0-51.0); Hemoglobin 9.6 g/dL (11.5-16.0)
[2022-05-08 04:43] LABS: Albumin, Blood 1.8 g/dL (3.4-5.0); Anion Gap 6 mmol/L (6-16); Blood Urea Nitrogen 49 mg/dL (8-24); CO2, Blood 26 mmol/L (21-32); Calcium, Blood 8.1 mg/dL (8.5-10.1); Chloride, Blood 113 mmol/L (98-108); Creatinine, Blood 2.89 mg/dL (0.40-1.00); Glomerular Filtration Rate 16 (60-); Glucose, Blood 91 mg/dL (70-99); Magnesium, Blood 1.8 mg/dL (1.6-2.4); Phosphorus, Blood 3.9 mg/dL (2.5-4.9); Potassium, Blood 3.4 mmol/L (3.5-5.5); Sodium, Blood 145 mmol/L (136-145)
--- NOTE | 2022-05-08 06:12 | NUR ---
CONSISTENT NEPHROSTOMY OUTPUT. CONSISTENT COLOSTOMY OUTPUT, BROWN AND LIQUIDY. NS A 75 MLS/HR. REPOSITIONING ASSISTANCE PROVIDED, PATIENT PREFERS TO LIE ON L HIP, CHRONIC WOUND A RESULT. VSS ON RA. PLEASANT, ORIENTED, CALLS TO MAKE NEEDS KNOWN, DID NOT ATTEMPT TO GET OUT OF BED. TYLENOL FOR HEADACHE/BACK PAIN X 1. OTHERWISE NO EVENTS DURING SHIFT.
[2022-05-08] MEDS ORDERED: FAMO10 PO (14:32)
--- NOTE | 2022-05-08 15:36 | NUR ---
DISCHARGE PATIENT A&OX4, COOPERATIVE, FORGETFUL AT TIMES. DENIED PAIN, CP, HEADACHE, OR SOB DURING THIS SHIFT. NO ACUTE CHANGES DURING THIS SHIFT. NEPHROSTOMY DRESSING CHANGED. SKIN UNDER DRESSING NOTED TO BE IRRITATED. INSTRUCTED PT TO HAVE KIDNEY DR TO ASSESS AT NEXT APPT. FAMILY TOOK PHOTO TO SHOW DR. DISCUSSED DISCHARGE PACKET AND INSTRUCTED PT TO HAVE HOME HEALTH LOOK AT COCCYX WOUND. FAMILY AND PT DENIES AND QUESTIONS OR CONCERNS AT THIS TIME. POWERGLIDE REMOVED, NO PROBLEMS NOTED. PT WHEELED OUT WITH FAMILY AND CAREGIVER AT 1530.
== END 2022-05-08 15:29 | disposition home health service (06) | DRG 698 ==
LOC: ER 10:56 → MEDS 14:37
PROVIDERS: Emergency Medicine; Internal Medicine; Internal Medicine Gastroenterology; Internal Medicine Nephrology; Nurse Practitioner Acute Care; Student in an Organized Health Care Education/Training Program; ADMIT Hospitalist
PROC: 30233N1 Transfusion of Nonautologous Red Blood Cells into Peripheral Vein, Percutaneous Approach (ICD-10-PCS; 2022-05-06)
PROC: 0W3P8ZZ Control Bleeding in Gastrointestinal Tract, Via Natural or Artificial Opening Endoscopic (ICD-10-PCS; principal; 2022-05-07 13:30)
DX: T83.512A Infection and inflammatory reaction due to nephrostomy catheter, initial encounter (principal); E43 Unspecified severe protein-calorie malnutrition; G92.8 Other toxic encephalopathy; N17.9 Acute kidney failure, unspecified; Z68.1 Body mass index [BMI] 19.9 or less, adult; E87.20 Acidosis, unspecified; B37.49 Other urogenital candidiasis; N18.4 Chronic kidney disease, stage 4 (severe); N13.6 Pyonephrosis; D63.1 Anemia in chronic kidney disease; N13.9 Obstructive and reflux uropathy, unspecified; E86.0 Dehydration; R31.9 Hematuria, unspecified; K44.9 Diaphragmatic hernia without obstruction or gangrene; K55.20 Angiodysplasia of colon without hemorrhage; L89.152 Pressure ulcer of sacral region, stage 2; K21.9 Gastro-esophageal reflux disease without esophagitis; E83.42 Hypomagnesemia; E87.6 Hypokalemia; E86.9 Volume depletion, unspecified; G60.9 Hereditary and idiopathic neuropathy, unspecified; E88.09 Other disorders of plasma-protein metabolism, not elsewhere classified; Z96.0 Presence of urogenital implants; Z85.828 Personal history of other malignant neoplasm of skin; Z87.442 Personal history of urinary calculi; Z98.890 Other specified postprocedural states; Z90.5 Acquired absence of kidney; Z93.3 Colostomy status; Z89.611 Acquired absence of right leg above knee; Z91.048 Other nonmedicinal substance allergy status; Z79.01 Long term (current) use of anticoagulants; Z79.899 Other long term (current) drug therapy; Z79.891 Long term (current) use of opiate analgesic; Z79.2 Long term (current) use of antibiotics; Z90.49 Acquired absence of other specified parts of digestive tract; Z90.710 Acquired absence of both cervix and uterus; Z90.722 Acquired absence of ovaries, bilateral; Z86.718 Personal history of other venous thrombosis and embolism
CPT/HCPCS: 36415; 36430; 71045; 76770; 80053; 80069; 81001; 82803; 83605; 83735; 84100; 84132; 85014; 85018; 85025; 85027; 86850; 86900; 86901; 86923; 87040; 87086; 87106; 93005; 93010; 96374; 97110; 97130; 97162; 97165; 97530; 99285-25; A9270; C9113; J0696; J2704; J3475; J7030; J7050; J7070; J7120; P9016

== ENCOUNTER 2022-06-03 12:16 | Inpatient (IN) | payer MEDICARE, OTHER ==
[~2022-06-03] VITALS: Ht 167.6 cm; Wt 37.7 kg
[~2022-06-03 12:16] MED LIST changes: +FAMO10 PO; +TRAM50
[2022-06-03] MEDS ORDERED: [UNRECOGNIZED DRUG - CODE] PO (12:33)
[2022-06-03] MEDS ORDERED: PANTOPRAZOLE SO40 M2 PO (12:33)
[2022-06-03] MEDS ORDERED: ONDA4 PO (12:33)
[2022-06-03 13:38] LABS: Source, Urine Urostomy Bag
[2022-06-03 13:50] LABS: Appearance, Urine Turbid (Clear); Bilirubin, Urine Neg (Neg); Blood, Urine 5+ (Neg); Color, Urine Amber (P-Yellow); Glucose Qualitative, Urine Neg (Neg); Ketones, Urine Neg (Neg); Leukocyte Esterase, Urine 3+ (Neg); Nitrite, Urine Neg (Neg); Protein, Urine 3+ (Neg); Urobilinogen, Urine NORM (Normal)
[2022-06-03 14:06] LABS: Bacteria Many /hpf; Red Blood Cells, Urine TNTC /hpf (0-2); Squamous Epithelial Cells Mod /hpf (Few); White Blood Cells, Urine TNTC /hpf (0-5)
[2022-06-03 14:07] LABS: Granular Casts 0-2 /lpf (0)
[2022-06-03 14:13] LABS: Hematocrit 37.4 % (33.0-51.0); Hemoglobin 11.5 g/dL (11.5-16.0); Mean Corpuscular HGB 24.2 pg (26.0-34.0); Mean Corpuscular HGB Conc 30.7 g/dL (31.5-36.5); Mean Corpuscular Volume 79 fL (80-100); Mean Platelet Volume 9.6 fL (9.1-12.4); Platelet Count 512 K/mm3 (150-400); RDW Coefficient Variation 19.5 % (11.7-14.2); RDW Standard Deviation 55.1 fL (35.1-46.3); Red Blood Cell Count 4.76 M/mm3 (3.80-5.20); White Blood Cell Count 15.51 K/mm3 (4.00-11.30)
[2022-06-03 14:32] LABS: Albumin, Blood 2.2 g/dL (3.4-5.0); Albumin/Globulin Ratio 0.5 (0.8-1.8); Bilirubin, Total 0.2 mg/dL (0.1-1.0); Bun/Creatinine Ratio 22.5 (12.0-20.0); Calcium, Blood 9.8 mg/dL (8.5-10.1); Creatinine, Blood 6.13 mg/dL (0.40-1.00); Globulin, Blood 4.8 g/dL (2.2-4.0); Potassium, Blood 5.1 mmol/L (3.5-5.5)
[2022-06-03 14:40] LABS: BASOPHILS PERCENT MAN 0 % (0-2); EOSINOPHILS PERCENT MAN 0 % (0-6); LYMPHOCYTES ABSOLUTE MAN 0.31 K/mm3 (0.84-5.20); LYMPHOCYTES PERCENT MAN 2 % (21-46); MONOCYTES ABSOLUTE MAN 0.62 K/mm3 (0.16-1.47); MONOCYTES PERCENT MAN 4 % (4-13); MYELOCYTE ABSOLUTE MAN 0.15 K/mm3 (0.00-0.00); MYELOCYTE PERCENT MAN 1 % (0-0); NEUTROPHILS ABSOLUTE MAN 14.42 K/mm3 (1.96-9.15); SEG NEUTROPHILS PERCENT MAN 93 % (41-73); TOTAL CELLS COUNTED 100
--- NOTE | 2022-06-03 18:00 | NUR ---
ADMISSION: PT ARRIVES DIRECT ADMIT FROM THE ED. INITIAL C/O WEAKNESS, AMS. PT FOUND TO HAVE UTI W/ MAGALYS. SEE INITIAL ASSESSMENT FOR PT ASSESSMENT. PT IS ALERT, BUT CONFUSED. RECALLS WHO FAMILY IS BUT DOES NOT KNOW WHY SHE IS HERE OR WHERE SHE IS. ABLE TO FOLLOW SIMPLE COMMANDS ABLE. GROSSLY DECONDITIONED & W/ RLE AMPUTATION, PT UNABLE TO FULLY PARTICIPATE IN ASSESSMENTS. FAMILY BELIEVES SHE IS MORE WEAK THAN NML BUT IS @ HER BASELINE.
[2022-06-03 20:28] LABS: Bun/Creatinine Ratio 21.7 (12.0-20.0); Calcium, Blood 9.1 mg/dL (8.5-10.1); Potassium, Blood 4.6 mmol/L (3.5-5.5)
--- NOTE | 2022-06-04 00:11 | NUR ---
CONTACTED DR. GONZALEZ REGARDING PT'S BP OF 59/49 WITH A MAP OF 55. ORDER OBTAINED FOR 250 CC NS BOLUS.
--- NOTE | 2022-06-04 00:51 | NUR ---
SPOKE WITH DR. GONZALEZ AGAIN POST BOLUS AND PT BP IS 74/47 WITH MAP OF 56. PT STILL ALERT AND TALKING. ANOTHER BOLUS OF 250 ML NS OBTAINED.
--- NOTE | 2022-06-04 01:10 | NUR ---
ATTEMPTED TO CONTACT PT'S DAUGHTER REGARDING BP AND TRANSFER TO ICU. UNABLE TO GET A HOLD OF HER SO GENERIC MESSAGE WAS LEFT.
--- NOTE | 2022-06-04 01:29 | NUR ---
FAMILY CONTACT NUMBERS FELICIANO (DAUGHTER AND CAREGIVER) - [phone] - FIRST CONTACT LAUREN () - [phone] TUCKER (SON) - [phone] [facility] - [phone]
--- NOTE | 2022-06-04 01:31 | NUR ---
DAUGHTER CALLED BACK AND WAS INFORMED OF PT TRANSFER TO ICU AND GIVEN ICU EXTENSION.
[2022-06-04 03:24] LABS: BASOPHILS ABSOLUTE AUTO 0.04 K/mm3 (0.00-0.23); BASOPHILS PERCENT AUTO 0 % (0-2); EOSINOPHILS ABSOLUTE AUTO 0.13 K/mm3 (0.00-0.68); EOSINOPHILS PERCENT AUTO 1 % (0-6); Hematocrit 30.1 % (33.0-51.0); Hemoglobin 9.2 g/dL (11.5-16.0); IMMATURE GRAN ABSOLUTE AUTO 0.13 K/mm3 (0.00-0.10); IMMATURE GRAN PERCENT AUTO 1 % (0-1); LYMPHOCYTES ABSOLUTE AUTO 0.81 K/mm3 (0.84-5.20); LYMPHOCYTES PERCENT AUTO 6 % (21-46); MONOCYTES ABSOLUTE AUTO 0.75 K/mm3 (0.16-1.47); MONOCYTES PERCENT AUTO 6 % (4-13); Mean Corpuscular HGB 23.8 pg (26.0-34.0); Mean Corpuscular HGB Conc 30.6 g/dL (31.5-36.5); Mean Corpuscular Volume 78 fL (80-100); NEUTROPHILS ABSOLUTE AUTO 11.44 K/mm3 (1.96-9.15); NEUTROPHILS PERCENT AUTO 86 % (41-73); Platelet Count 470 K/mm3 (150-400); RDW Coefficient Variation 19.6 % (11.7-14.2); RDW Standard Deviation 55.7 fL (35.1-46.3); Red Blood Cell Count 3.87 M/mm3 (3.80-5.20)
[2022-06-04 03:39] LABS: Bun/Creatinine Ratio 23.7 (12.0-20.0); Creatinine, Blood 5.62 mg/dL (0.40-1.00); Potassium, Blood 3.9 mmol/L (3.5-5.5)
--- NOTE | 2022-06-04 04:44 | NUR ---
ARRIVAL TO ICU 15 PT ARRIVED VIA BED AND BEDSIDE REPORT WITH RADIOGRAPHY TECHNICIAN. PT ALERT AND ABLE TO STATE NAME, CITY, YEAR AND THAT SHE WAS IN THE HOSPITAL. PT SEEING 'BLUE THINGS' IN HER BED, AND PEOPLE IN ROOM WHEN ONLY THIS RN WAS PRESENT. PT PICKING AT LINES AND PULLING OFF SPO2 PROBE. ST RATE 100'S. SBP 70-80'S. LEVOPHED GTT INFUSING. SEE FLOWSHEET FOR TITRATIONS. PT HAS PG TO CAMILLE. MULTIPLE ATTEMPTS MADE TO DRAW BLOOD AND START PIV. SUCCESS IN R FOREARM. LEVOPHED SWITCHED FROM PG TO PIV. BLOOD CULTURES PULLED PRIOR. PIV INFILTRATED APPROX 20 MINS AFTER. LEVOPHED SWITCHED TO PG AND PHARMACY CONSULTED. REGITINE ORDERED AND ADMINISTERED.
--- NOTE | 2022-06-04 04:54 | NUR ---
CRITICAL CARE CONSULT CALL MADE TO DAUGHTER REGARDING CENTRAL LINE PLACEMENT AND PLAN OF CARE. DAUGHTER CONSENTS TO LINE PLACEMENT. DAUGHTER ALSO STATED THAT PT SEES DR BRYANT OUTPATIENT. CONSULT ORDERED BY HOSP RESIDENT FOR HYPOTENSION AND LINE PLACEMENT. DR CANELA CALLED AND AT BEDSIDE. LR BOLUS ORDERED AND ADMINISTERED. CONSULT FOR DR BRYANT CALLED AND ORDERS RECEIVED.
--- NOTE | 2022-06-04 07:38 | NUR ---
CVC PLACEMENT CVC PLACED BY DR CANELA AND PLACEMENT CONFIRMED. SECOND SET OF BLOOD CULTURES SENT TO LAB AND LEVOPHED W/ LR BOLUS SWITCHED TO CENTRAL LINE. VERBAL ORDER TO CHECK CVP ONCE BICARB AND ZOSYN STARTED. DISCUSSED WITH DAY SHIFT RN.
--- NOTE | 2022-06-04 08:00 | NUR ---
INITIAL ASSESSMENT PATIENT CONFUSED AND HAVING OCCASIONAL HALLUCINATIONS. PATIENT ORIENTED TO YEAR, MONTH, FAMILY AND SELF. VOICE SOFT. PATIENT WEAK BUT ABLE TO MOVE EXTREMITIES. R HEMIPELVECTOMY. CAMERA ON PATIENT OCCASIONALLY PICKS AT LINES AND CORDS. PATIENT AFEBRILE. PATIENT LABILE. PATIENT ANXIOUS AND IRRITABLE AT TIMES AND COOPERATIVE AND CALM AT OTHERS. PATIENT SATTING 90% AND GREATER ON RA. LUNGS CLEAR. PATIENT IN ST, HR IN THE LOW 100S. MAPS GREATER THAN 65 ON LEVOPHED, WHICH IS CURRENTLY AT 9 MCG/ MINUTE. ABD TENDER, SOFT; NORMOACTIVE BOWEL SOUNDS NOTED. ILEOSTOMY NOTED TO LLQ. LAST BM YESTERDAY PER DOCUMENTATION. L NEPHROSTOMY TUBE IN PLACE; DRAINING YELLOW COLORED URINE. PRESSURE ULCER NOTED TO COCCYX; MEPILEX IN PLACE. SODIUM BICARB INFUSING AT 100 MLS/ HOUR. BED LOW, CALL LIGHT IN REACH. WILL CONTINUE TO MONITOR PATIENT FREQUENTLY THROUGHOUT SHIFT.
--- NOTE | 2022-06-04 12:15 | NUR ---
PATIENT AFEBRILE. HR 80S TO LOW 100S. SBP 80S TO LOW 100S. LEVOPHED AT 4 MCG/ MINUTE. NO OTHER ACUTE CHANGES TO NOTE ON AT THIS TIME. WILL CONTINUE TO MONITOR.
--- NOTE | 2022-06-04 16:30 | NUR ---
PATIENT HAS TEMP OF 99.4 DEGREES FAHRENHEIT. PATIENT HAS MULTIPLE BLANKETS ON, DOOR CLOSED AND TEMP IN ROOM UP AND STATES THAT SHE "IS USUALLY ALWAYS COLD". HR 80S TO 90S. MAPS 65 AND GREATER; LEVOPHED CURRENTLY ON SB. NO OTHER ACUTE CHANGES TO NOTE ON AT THIS TIME. WILL CONTINUE TO MONITOR.
--- NOTE | 2022-06-04 17:29 | NUR ---
Family is ready to take pt home with hospice, and have chosen [facility], as they have previously worked with [facility]. Tatyana to call tomorrow, Monday 06/05 with availability for start date. Sons are flying home in the next 2 days, and pt started on midodrine.
--- NOTE | 2022-06-04 18:23 | NUR ---
SHIFT SUMMARY PATIENT REMAINED CONFUSED. PATIENT NAPPED ON AND OFF THROUGHOUT SHIFT. PATIENT IRRITABLE AND ANXIOUS AT TIMES. PATIENT CONTINUED TO OCCASIONALLY PICK AT LINES AND CORDS. PATIENT GIVEN PRN TRAMADOL OT FOR COMPLAINTS "ALL OVER" AND IN "BUTT". PATIENT REMAINED WEAK BUT ABLE TO MOVE ARMS AND LEG. PATIENT REMAINED SATTING 90% AND GREATER ON RA. HR RANGED FROM 80S TO 120S. SBP 60S TO 120S. LEVOPHED MAX WAS 9 MCG/ MINUTE THIS SHIFT. PATIENT CURRENTLY ON 1 MCG/ MIN OF LEVOPHED AND WAS STARTED ON MIDODRINE AT END OF SHIFT. 1150 MLS OF URINE OUT FROM NEPHROSTOMY BAG. NO CHANGES TO SKIN NOTED. PATIENT REPOSITIONED Q2H. SODIUM BICARB REMAINS INFUSING AT 100 MLS/ HOUR. PATIENT HAD 500 CC LR BOLUS THIS AM. PATIENT HAD COMPLETE BED BATH. PATIENT CHANGED TO DNR STATUS AND FAMILY TALKED TO PALLIATIVE CARE NURSE THEY ARE WANTING TO TAKE PATIENT HOME ON HOSPICE. PATIENT SLEEPING WITHOUT SIGNS OF PAIN OR DISTRESS AT THIS TIME. BED LOW, CALL LIGHT IN REACH. REPORT WILL BE GIVEN TO ASSUMING COMMERCIAL ANALYST NURSE SHORTLY.
--- NOTE | 2022-06-04 21:00 | NUR ---
ASSUMED CARE AT 1900 PT LAYING IN BED SLEEPING AT SHIFT CHANGE BUT WAKES TO VERBAL STIMULI. SHE IS ORIENTED TO SELF ONLY; CHALLENGING TO FOLLOW HER SENTENCES; SHE CAN ANSWER Y/N QUESTIONS BUT NOT APPROPRIATLY. SPO2 >94% ON RA. AFEBRILE. NSR WITH RATE 70'S. SBP 120'S; DBP 40-50'S; MAP 60-70; LEVOPHED INFUSING AT 1MCG/MIN; SEE FLOWSHEET FOR TITRATIONS. ILEOSTOMY IN PLACE; STOMA RED AND ROUND; LITTLE OUTPUT. NEPHROSTOMY IN PLACE AND DRAINING TO GRAVITY. CENTRAL LINE TO RIJ PATENT WITH DRESSING C/D/I. PG TO CAMILLE PATENT, DRESSING C/D/I. BICARB INFUSING AT 100ML/HR. SEE SHIFT ASSESSMENT FOR FULL ASSESSMENT.
[2022-06-05 04:25] LABS: BASOPHILS ABSOLUTE AUTO 0.01 K/mm3 (0.00-0.23); BASOPHILS PERCENT AUTO 0 % (0-2); EOSINOPHILS PERCENT AUTO 1 % (0-6); Hemoglobin 7.7 g/dL (11.5-16.0); IMMATURE GRAN ABSOLUTE AUTO 0.09 K/mm3 (0.00-0.10); IMMATURE GRAN PERCENT AUTO 1 % (0-1); LYMPHOCYTES ABSOLUTE AUTO 0.52 K/mm3 (0.84-5.20); LYMPHOCYTES PERCENT AUTO 5 % (21-46); MONOCYTES ABSOLUTE AUTO 0.61 K/mm3 (0.16-1.47); MONOCYTES PERCENT AUTO 6 % (4-13); Mean Corpuscular HGB 23.6 pg (26.0-34.0); Mean Corpuscular HGB Conc 32.1 g/dL (31.5-36.5); Mean Corpuscular Volume 74 fL (80-100); NEUTROPHILS ABSOLUTE AUTO 9.55 K/mm3 (1.96-9.15); NEUTROPHILS PERCENT AUTO 88 % (41-73); Platelet Count 440 K/mm3 (150-400); RDW Coefficient Variation 19.1 % (11.7-14.2); RDW Standard Deviation 51.2 fL (35.1-46.3); Red Blood Cell Count 3.26 M/mm3 (3.80-5.20); White Blood Cell Count 10.88 K/mm3 (4.00-11.30)
[2022-06-05 04:57] LABS: Albumin, Blood 1.3 g/dL (3.4-5.0); Anion Gap 9 mmol/L (6-16); Blood Urea Nitrogen 95 mg/dL (8-24); CO2, Blood 29 mmol/L (21-32); Calcium, Blood 7.4 mg/dL (8.5-10.1); Chloride, Blood 101 mmol/L (98-108); Creatinine, Blood 4.99 mg/dL (0.40-1.00); Glomerular Filtration Rate 8 (60-); Glucose, Blood 149 mg/dL (70-99); Phosphorus, Blood 5.8 mg/dL (2.5-4.9); Sodium, Blood 139 mmol/L (136-145)
--- NOTE | 2022-06-05 07:13 | NUR ---
END OF SHIFT SUMMARY NO ACUTE EVENTS OVER NIGHT. PT SLEPT FOR MOST OF THE NIGHT. NO CHANGES IN NEURO STATUS. CONT TO BE ON RA. HR 70-80'S. SBP 120-150'S; DBP 40-50'S; MAP 60-70'S; LEVOPHED TITRATED BETWEEN 1-2MCG/MIN. NEPHROSTOMY DRINING TO GRAVITY WITH 500ML OUTPUT. ILLIOSTOMY IN PLACE WITH NO OUTPUT. BICARB INFUSING FOR MOST OF THE NIGHT. AM LAB RESULTS CALLED TO DR BRYANT; HE PROVIDED NEW ORDERS FOR MAG AND POTASSIUM REPLACEMENT ALONG WITH SWITCHING BICARB FOR NS. PT DAUGHTER CALLED THIS AM FOR AN UPDATE. REPORT GIVEN TO AYAZ MCGINNIS.
--- NOTE | 2022-06-05 09:00 | NUR ---
INITIAL ASSESSMENT PATIENT CALM WITH FLAT AFFECT. PATIENT ORIENTED TO SELF, FAMILY, TOWN AND HOSPITAL. PATIENT BELIEVED IT WAS IN THE 194S. PATIENT STATED "" WHEN ASKED THE MONTH. VOICE SOFT. PATIENT WEAK BUT ABLE TO MOVE BILAT ARMS AND L LEG. R HEMIPELVECTOMY NOTED. PATIENT GIVEN PRN PAIN MEDICATION THIS AM WHEN ASKED HOW SHE FELT AND STATED "NOT GREAT". PAIN IMPROVED. PATIENT HAS TEMP OF 99.2 DEGREES FAHRENHEIT. PATIENT SATTING 90% AND GREATER ON RA. PATIENT IN SR WITH OCCASIONAL PACS AND PVCS, HR 70S TO 80S. SBP LOW 100S TO 120S. LEVOPHED PLACED ON SB. ABD SOFT WITH NORMOACTIVE BOWEL SOUNDS NOTED. PATIENT HAS POOR APPETITE. PATIENT PLACED ON PUREE DIET. ILEOSTOMY TO L QUADRANT. NEHPROSTOMY TO L FLANK DRAINING YELLOW COLORED URINE. SKIN PALE, FRAGILE AND SCATTERED BRUISES NOTED. PRESSURE ULCER TO COCCYX; MEPILEX PLACED. NORMAL SALINE INFUSING AT 75 MLS/ HOUR. PATIENT RECEIVING 2 G MAG AND 30 MEQ KCL REPLACEMENT THIS AM. BED LOW, CALL LIGHT IN REACH. WILL CONTINUE TO MONITOR PATIENT FREQUENTLY THROUGHOUT SHIFT.
--- NOTE | 2022-06-05 12:30 | NUR ---
PATIENT HAS TEMP OF 99.1 DEGREES FAHRENHEIT. HR IN THE 70S. SBP 130S TO 140S. DIASTOLIC BP IN THE 40S. MAPS 65 AND GREATER. LEVOPHED ON SB. SCHEDULED MIDODRINE BEING GIVEN. NO OTHER ACUTE CHANGES TO NOTE ON AT THIS TIME. WILL CONTINUE TO MONITOR.
--- NOTE | 2022-06-05 16:30 | NUR ---
NO ACUTE CHANGES TO NOTE ON AT THIS TIME. WILL CONTINUE TO MONITOR.
--- NOTE | 2022-06-05 17:36 | NUR ---
SHIFT SUMMARY PATIENT REMAINED CONFUSED. PATIENT HAD PRN PAIN MED OT THIS AM AND HAS NOT HAD SIGNS OF COMPLAINTS OF PAIN SINCE. PATIENT HAS REMAINED WEAK. PATIENT HAS REMAINED ON RA. LEVOPHED PLACED ON SB OVER 5 HOURS AGO. SCHEDULED MIDODRINE DOSE INCREASED THIS SHIFT. NO OUTPUT FROM ILEOSTOMY THIS SHIFT. OUTPUT FROM NEPHROSTOMY REMAINS YELLOW, CLOUDY WITH SEDIMENT. NO CHANGES TO SKIN NOTED. SODIUM BICARB DC'D AND NS AT 75 MLS/ HOUR STARTED THIS SHIFT. PATIENT RECIEVED 2 GM MAG AND 30 MEQ KCL REPLACEMENTS THIS AM. PATIENT HAD SWALLOW EVAL AND PLACED ON PUREE DIET. FAMILY IN THIS AFTERNOON. REPORT TO BE GIVEN TO ASSUMING NURSE SHORTLY.
[2022-06-06 05:33] LABS: Hematocrit 26.4 % (33.0-51.0); Hemoglobin 8.1 g/dL (11.5-16.0)
[2022-06-06 06:02] LABS: Albumin, Blood 1.3 g/dL (3.4-5.0); Anion Gap 7 mmol/L (6-16); Blood Urea Nitrogen 84 mg/dL (8-24); Bun/Creatinine Ratio 17.7 (12.0-20.0); CO2, Blood 25 mmol/L (21-32); Calcium, Blood 7.9 mg/dL (8.5-10.1); Chloride, Blood 108 mmol/L (98-108); Creatinine, Blood 4.75 mg/dL (0.40-1.00); Glomerular Filtration Rate 9 (60-); Glucose, Blood 94 mg/dL (70-99); Magnesium, Blood 1.8 mg/dL (1.6-2.4); Phosphorus, Blood 6.3 mg/dL (2.5-4.9); Potassium, Blood 3.5 mmol/L (3.5-5.5); Sodium, Blood 140 mmol/L (136-145)
--- NOTE | 2022-06-06 06:44 | NUR ---
END OF SHIFT SUMMARY PT RESTED MOST OF THE NIGHT. VERY SLEEPY. OXYGEN SET TO 2 LMP NC D/T SLEEP APNEA. SEE ALL ASSESSMENTS AND DOCUMENTATION FOR MORE INFORMATION.
--- NOTE | 2022-06-06 08:06 | NUR ---
Assumed care at approximately 0700. Report recieved from nightshift RN. Pt sleeping at time of report. On 2 L/min 02 via NC, NS infusing at 75 ml/hr. VS stable, no acute needs at time of report. Continue to monitor.
--- NOTE | 2022-06-06 10:23 | NUR ---
Spiritual Care Visit. Pt. is awake in bed and welcomes my visit. Pt. displays evidence of being pleasantly confused. Pt. does not display evidence of discomfort, but does display evidence of low energy. Prayed with Pt. Pt. verbalized gratitude for [facility] spiritual care visit.
--- NOTE | 2022-06-06 11:24 | NUR ---
Brief supportive visit this AM. Pt resting in bed and reporting pain but appears to struggle with providing location. After a few more questions it appears Pt's pain may be in her coccyx area. Pt's sister at bedside. Brief review of D/C plan with Pt and sister being in agreement. Plan for Pt to D/C this afternoon with hospice services. Spoke with sheriff's detective Roby and reported Pt's pain as primary RN not available at this time. Palliative Care will remain available.
[2022-06-06] MEDS ORDERED: ACET325 PO (14:03)
[2022-06-06] MEDS ORDERED: ARANESP25 MCG/0.1 SC (14:06)
--- NOTE | 2022-06-06 15:44 | NUR ---
Patient discharge. All personal belongings sent home with patient's sister. VS stable, no acute needs at time of transport. Discharge packet and instructions given to patient and sister prior to transport, sister verbalized understanding of instructions. Pt transported home via ambulance.
== END 2022-06-06 15:14 | disposition home or self-care (01) | DRG 682 ==
LOC: ER 12:16 → PCU 16:04 → ICUW 16:04 → PCU 17:00 → ICUW 06-04 01:15
PROVIDERS: Emergency Medicine; Family Medicine; Internal Medicine Nephrology; ADMIT Hospitalist
PROC: 3E033XZ Introduction of Vasopressor into Peripheral Vein, Percutaneous Approach (ICD-10-PCS; principal; 2022-06-04)
PROC: 02HV33Z Insertion of Infusion Device into Superior Vena Cava, Percutaneous Approach (ICD-10-PCS; 2022-06-04)
DX: N17.9 Acute kidney failure, unspecified (principal); R57.1 Hypovolemic shock; N13.8 Other obstructive and reflux uropathy; E87.20 Acidosis, unspecified; N39.0 Urinary tract infection, site not specified; Z68.1 Body mass index [BMI] 19.9 or less, adult; G93.49 Other encephalopathy; F03.92 Unspecified dementia, unspecified severity, with psychotic disturbance; E44.0 Moderate protein-calorie malnutrition; Z66 Do not resuscitate; Z51.5 Encounter for palliative care; D63.1 Anemia in chronic kidney disease; N25.81 Secondary hyperparathyroidism of renal origin; E86.1 Hypovolemia; N18.6 End stage renal disease; N13.30 Unspecified hydronephrosis; E83.42 Hypomagnesemia; E87.6 Hypokalemia; R13.10 Dysphagia, unspecified; R44.1 Visual hallucinations; E86.0 Dehydration; R31.9 Hematuria, unspecified; G62.9 Polyneuropathy, unspecified; K21.9 Gastro-esophageal reflux disease without esophagitis; Z85.9 Personal history of malignant neoplasm, unspecified; Z87.442 Personal history of urinary calculi; Z90.49 Acquired absence of other specified parts of digestive tract; Z90.710 Acquired absence of both cervix and uterus; Z89.611 Acquired absence of right leg above knee; Z87.440 Personal history of urinary (tract) infections; Z86.718 Personal history of other venous thrombosis and embolism; Z93.3 Colostomy status; Z98.49 Cataract extraction status, unspecified eye; Z90.5 Acquired absence of kidney; Z87.891 Personal history of nicotine dependence; Z91.048 Other nonmedicinal substance allergy status; Z79.2 Long term (current) use of antibiotics; Z79.899 Other long term (current) drug therapy
CPT/HCPCS: 36415; 36556; 76770; 80048; 80053; 80069; 81001; 83605; 83735; 84145; 85014; 85018; 85025; 87086; 87106; 92610; 93005; 93010; 96372; 99285-25; A9270; C1751; J0696; J0881; J1644; J2543; J2760; J3010; J3475; J3480; J7030; J7040; J7050; J7060; J7070; J7120